=== PATIENT | female | born 1995 | race Caucasian/White ===

== ENCOUNTER 2023-03-08 00:26 | Emergency (ER) | payer BC, SELFPAY ==
--- NOTE | ~2023-03-08 | CT_ITS ---
CT of the Abdomen and Pelvis: Indication: Abdominal pain Technique: 2.5 mm axial scans were obtained through the abdomen and pelvis following intravenous adm inistration of 100 cc of Omnipaque 350. Dose reduction technique was used on this scan by utilizing a utomated exposure control and iterative reconstruction technique. The dose-length product (DLP) was 1 546.28 mGy-cm. Findings: Scans through the lung bases are unremarkable. The liver, spleen, pancreas, adrenals and kidneys are within normal limits. Gallstones are present. N o evidence of aortic aneurysm. No lymphadenopathy. No bowel obstruction or bowel wall thickening. There is no evidence to suggest acute appendicitis. Images through the pelvis were performed. Urinary bladder unremarkable. No significant adnexal mass s een. No ascites. Impression: Cholelithiasis. Reviewed, dictated and finalized at location . Impression: Cholelithiasis.
[2023-03-08 00:29] VITALS: BP 132/77; PULSE 87; RESP 16; TEMP 36.5; O2SAT 100
[2023-03-08 00:46] LABS: Basophils Percent Auto 0.4 % (0.2-1.2); Eosinophils Absolute Auto 0.4 K/mm3 (0-0.3); Eosinophils Percent Auto 3.6 % (0-4.4); Hematocrit 41.2 % (37.0-47.0); Hemoglobin 13.4 g/dL (12.0-15.0); Immature Granulocyte Absolute 0.04 K/mm3 (0.00-0.031); Immature Granulocyte Percent A 0.4 % (0-0.5); Lymphocytes Absolute Auto 3.28 K/mm3 (0.9-3.2); Lymphocytes Percent Auto 31.7 % (18.3-44.2); Mean Corpuscular HGB Conc 32.5 g/dl (32-36); Mean Corpuscular Hemoglobin 28.8 pg (26-34); Mean Corpuscular Volume 88.4 fl (80-100); Mean Platelet Volume 9.6 fl (7.4-10.4); Monocytes Absolute Auto 0.7 K/mm3 (0.1-0.6); Monocytes Percent Auto 6.3 % (2.6-8.5); Neutrophils Percent Auto 57.6 % (45.5-73.1); Platelet Count Result 303 k/mm3 (150-375); Red Blood Count 4.66 M/mm3 (4.2-5.4); Red Cell Distribution Width 12.8 % (11.5-14.5); White Blood Count 10.4 K/mm3 (4.5-10.0)
[2023-03-08 00:52] LABS: Appearance Urine Clear (Clear); Bilirubin Urine Negative (Negative); Blood Urine Negative (Negative); Color Urine Yellow (Yellow); Glucose Urine UA Negative (Negative); Ketones Urine Negative (Negative); Leukocyte Esterase Ur Negative LEU/UL (Negative); Nitrate Urine Negative (Negative); Protein Urine Negative (Negative); Specific Grav Ur 1.007 (1.001-1.035); Urobilinogen Urine 0.2 mg/dL (<2.0); pH Urine 7.5 (5.0-9.0)
[2023-03-08 01:00] LABS: Alanine Aminotransferase 21 U/L (6-35); Albumin Level 4.3 g/dL (3.5-5.1); Alkaline Phosphatase 87 U/L (38-126); Anion Gap 2 mmol/L (8-16); Aspartate Amino Transferase 23 U/L (14-36); Bilirubin,Total 0.2 mg/dL (0.2-1.3); Blood Urea Nitrogen 8 mg/dL (7-17); Calcium 9.2 mg/dL (8.4-10.2); Carbon Dioxide 27 mmol/L (22-30); Chloride 105 mmol/L (98-107); Estimated CRCL calculation 143 ml/min; Estimated Glomerular Filt Rate > 60; Glucose 102 mg/dL (65-110); Lipase 73 U/L (23-300); Sodium 134 mmol/L (137-145)
[2023-03-08 01:02] LABS: Add Urine Microscopic? NO
--- NOTE | 2023-03-08 01:25 | ED.GENADULT ---
HPI - General Adult General Chief complaint: Abdominal Pain Stated complaint: abd pain Time Seen by Provider: 03/08/23 01:05 History of Present Illness HPI narrative: Patient is a 27-year-old female who presents the emergency department with chief complaint of right upper quadrant pain. Patient reports that she has history of gallbladder disease and reports that she still has her gallbladder and has not had a surgery on it yet patient reports that she ate some cream cheese this morning and had some jambalaya for lunch and then started having severe pain in the right upper quadrant that radiates to her back. The patient states the worst episode that she has had so far and reports the pain is not improved by anything. Related Data Allergies Allergy/AdvReac Type Severity Reaction Status Date / Time No Known Allergies Allergy Verified 03/08/23 00:53 Review of Systems Review of Systems: A 10 system review of systems was completed on the patient and is negative except for what is stated in the HPI. Nursing and ancillary documentation was reviewed. Exam Narrative: GENERAL: Well-appearing, well-nourished, and in no acute distress. HEAD: Normocephalic, atraumatic. EYES: PERRLA and EOMI. ENT: Nares clear, no rhinorrhea or epistaxis. Mucous membranes moist. NECK: Supple. CHEST: Clear to auscultation. No respiratory distress. HEART: Regular rate and rhythm. No murmur heard. Normal peripheral pulses. ABDOMEN: Soft, tenderness to palpation of the right upper quadrant, nondistended, normal active bowel sounds. EXTREMITIES: Normal range of motion. No edema. SKIN: Warm, dry, no rash. NEURO: No focal deficits. Alert and oriented x3. PSYCH: Normal mood and affect. Course Vital Signs Vital signs: Vital Signs Temperature 36.5 C 03/08/23 00:29 Pulse Rate 87 03/08/23 00:29 Respiratory Rate 16 03/08/23 00:29 Blood Pressure 132/77 03/08/23 00:29 Pulse Oximetry 100 03/08/23 00:29 Oxygen Delivery Room Air 03/08/23 00:29 Temperature 36.5 C 03/08/23 00:29 Pulse Rate 78 03/08/23 06:21 Respiratory Rate 14 03/08/23 06:21 Blood Pressure 110/70 03/08/23 06:21 Pulse Oximetry 100 03/08/23 06:21 Oxygen Delivery Room Air 03/08/23 00:29 Medical Decision Making MDM Narrative Medical decision making narrative: Differential diagnosis include choledocholithiasis, cholelithiasis, acute cholecystitis Laboratory studies were obtained and the patient is a white count of 10.4 electrolytes showed an AST of 23 and ALT of 21 and a bilirubin of 0.2 urinalysis showed no evidence of UTI lipase was 73 CT scan shows no evidence of acute cholecystitis just evidence of cholelithiasis Vital Signs Vital Signs: Vital Signs Temperature 36.5 C 03/08/23 00:29 Pulse Rate 87 03/08/23 00:29 Respiratory Rate 16 03/08/23 00:29 Blood Pressure 132/77 03/08/23 00:29 Pulse Oximetry 100 03/08/23 00:29 Oxygen Delivery Room Air 03/08/23 00:29 Temperature 36.5 C 03/08/23 00:29 Pulse Rate 78 03/08/23 06:21 Respiratory Rate 14 03/08/23 06:21 Blood Pressure 110/70 03/08/23 06:21 Pulse Oximetry 100 03/08/23 06:21 Oxygen Delivery Room Air 03/08/23 00:29 Lab Data 03/08/23 00:39 03/08/23 00:39 Labs: Lab Results 03/08/23 03/08/23 Range/Units 00:39 00:45 WBC 10.4 H (4.5-10.0) K/mm3 RBC 4.66 (4.2-5.4) M/mm3 Hgb 13.4 (12.0-15.0) g/dL Hct 41.2 (37.0-47.0) % MCV 88.4 (80-100) fl MCH 28.8 (26-34) pg MCHC 32.5 (32-36) g/dl RDW 12.8 (11.5-14.5) % Plt Count 303 (150-375) k/mm3 MPV 9.6 (7.4-10.4) fl Immature Gran % (Auto) 0.4 (0-0.5) % Neut % (Auto) 57.6 (45.5-73.1) % Lymph % (Auto) 31.7 (18.3-44.2) % Placer % (Auto) 6.3 (2.6-8.5) % Eos % (Auto) 3.6 (0-4.4) % Baso % (Auto) 0.4 (0.2-1.2) % Lymph # (Auto) 3.28 H (0.9-3.2) K/mm3 Placer # (Auto) 0.7 H (0.1-0.6) K/mm3 Eos #
[2023-03-08] MEDS: ONDANSETRON INJ 4 MG/2 ML VIAL IV PUSH ×2 (01:35→06:46)
[2023-03-08] MEDS: MORPHINE SULFATE (*CRX) 4 MG/ML INJ IV PUSH ×2 (01:35→02:21)
[2023-03-08] MEDS: SODIUM CHLORIDE 0.9% IV 1,000 ML 999 ML IV CONT (01:35)
[2023-03-08 03:35] VITALS: BP 123/78; PULSE 71; RESP 14; O2SAT 99
[2023-03-08 05:28] VITALS: BP 111/76; PULSE 80; RESP 18; O2SAT 96
[2023-03-08 06:21] VITALS: BP 110/70; PULSE 78; RESP 14; O2SAT 100
[2023-03-08] MEDS: HYDROmorphone HCL INJ (*CRX) 1 MG/ML SYR 0.5 MG IV PUSH (06:46)
[2023-03-08 07:05] VITALS: BP 117/77; PULSE 88; RESP 17; O2SAT 100
== END 2023-03-08 07:20 | disposition home or self-care (01) ==
PROVIDERS: Emergency Provider Emergency Medicine
DX: K80.20 Calculus of gallbladder without cholecystitis without obstruction (principal)
CPT/HCPCS: 36415; 74177; 80053; 81003; 81025; 83690; 85025; 96361; 96374; 96375; 96376; 99284; J1170; J2270; J2405; J7030; Q9967

== ENCOUNTER → 2023-06-08 09:50 | Outpatient (CLI) | payer BC, SELFPAY ==
--- NOTE | ~2023-06-08 | XR_ITS ---
Left Knee Technique: AP, lateral, and oblique views were obtained. Clinical History: Pain Findings: No fracture or dislocation is seen. Osseous alignment is anatomic. Joint spaces are preserv ed without degenerative or erosive change. Soft tissues are unremarkable. No joint effusion is seen. Impression: Unremarkable left knee radiographs. Reviewed, dictated and finalized at location . Impression: Unremarkable left knee radiographs.
== END ==
PROVIDERS: PCP Emergency Medicine; Visit Provider Emergency Medicine
DX: M79.89 Other specified soft tissue disorders (principal)
CPT/HCPCS: 73562

== ENCOUNTER 2023-11-14 15:32 | Emergency (ER) | payer BC, SELFPAY ==
[2023-11-14 15:40] VITALS: BP 105/64; PULSE 85; RESP 16; TEMP 36.3; O2SAT 100
--- NOTE | 2023-11-14 16:21 | ED.GENADULT ---
HPI - General Adult General Chief complaint: Dental/Oral Stated complaint: Swollen/Numb mouth Source: patient, RN notes reviewed and old records reviewed Mode of arrival: ambulatory Limitations: no limitations History of Present Illness HPI narrative: 27-year-old female presents to [facility] with complaints upper lip swelling that started approximately 1:00 p.m. today. Patient states took 12.5 mg of Benadryl and swelling has improved. Patient denies any changes in medications, changes in products, patient denies eating or drinking anything prior to incident. Related Data Home Medications Medication Instructions Recorded Confirmed fluoxetine 40 mg capsule 40 mg PO DAILY 11/14/23 11/14/23 metformin 500 mg tablet 1,500 mg PO HS 11/14/23 11/14/23 Allergies Allergy/AdvReac Type Severity Reaction Status Date / Time ketorolac [From Toradol] Allergy Anaphylaxis Verified 11/14/23 17:05 Review of Systems Constitutional: Constitutional: Reports no additional constitutional complaints, Denies body ache(s), Denies chills, Denies fatigue, Denies fever(s) and Denies headache(s) Eyes: Eyes: Reports no additional eye complaints and Denies blurry vision ENT: Reports system reviewed and no additional complaints, except as documented, Denies vertigo, Denies dizziness, Denies ear discharge, Denies otalgia, Denies facial pain, Denies headache(s), Reports lip swelling ( Upper lip), Denies nasal congestion, Denies nasal discharge, Denies sinus pain, Denies sinus pressure and Denies sore throat Cardiovascular: Cardiovascular: Reports no additional cardiovascular complaints, Denies chest pain, Denies chest pain at rest, Denies rapid heart rate and Denies dyspnea Respiratory: Respiratory: Reports no additional respiratory complaints, Denies chest congestion, Denies cough, Denies pain on inspiration, Denies pain with cough and Denies dyspnea Gastrointestinal: Gastrointestinal: Denies abdominal pain, Denies diarrhea, Denies nausea and Denies vomiting Integumentary/Breasts: Skin/Breast: Denies rash Neurologic: Reports system reviewed and no additional complaints, except as documented, Denies vertigo, Denies dizziness and Denies headache(s) Endocrine: Endocrine: Denies fatigue PMFSH Comments At the time of my signature, I reviewed and agree with the nursing past medical, surgical, social, and family history. There is no relevant family history pertinent to the patient complaint. Exam Const: General: cooperative, healthy appearing, no acute distress and well nourished Nutritional Appearance: well nourished Orientation/consciousness: patient oriented x3 Limitations: no limitations HENMT: Head: normal to inspection and normocephalic Ears: external ears normal Face/Nose/Sinus: normal facial exam Face and sinus: normal facial exam Mouth: Yes Normal oral and palatal mucosa present, No lip normal, Yes oropharynx normal, Yes moist mucous membranes, Yes lip abnormal ( swollen upper lip. No acute distress) and No tongue abnormal Throat: tonsils normal, uvula midline and no uvular edema Eyes: General: appearance normal, both eyes and all related structures Sclera: sclerae normal Pupils: Equal, round and reactive pupils present Resp: Effort & Inspection: normal respiratory effort, able to speak in complete sentences, no audible wheezes, no cough, no respiratory distress and no retractions Auscultation: clear to auscultation bilaterally, no crackles, no rales, no rhonchi and no wheezes Cardio: Rate: regular rate Rhythm: regular rhythm Skin: General skin exam: normal color and no rashes or lesions noted Neuro: General: patient oriented x3 Cranial nerves: Yes Equal, round and reactive pupils present Psych: Appearance: grossly normal Mental Status: mental status grossly normal Speech and movement: Normal speech and movement present Affect: normal affect Course Course Emergency Course: Patient is aware of diagnosis, understands and agrees
[2023-11-14] MEDS: predniSONE 20 MG TABLET 40 MG PO (16:34)
[2023-11-14] MEDS: FAMOTIDINE 20 MG TABLET PO (16:34)
== END 2023-11-14 16:54 | disposition home or self-care (01) ==
PROVIDERS: Emergency Provider Registered Nurse; PCP Emergency Medicine
DX: T78.40XA Allergy, unspecified, initial encounter (principal); E28.2 Polycystic ovarian syndrome
CPT/HCPCS: 99213; A9270; G0463; J7512

== ENCOUNTER 2023-12-16 16:00 | Outpatient (CLI) | payer BC, SELFPAY ==
--- NOTE | ~2023-12-16 | XR_ITS ---
EXAMINATION: XR shoulder RT min 2V DATE: 12/16/2023 16:45 INDICATION: Right shoulder pain. TECHNIQUE: 5 views of right shoulder were obtained. COMPARISON: None. FINDINGS: Bone alignment is normal. No fracture. Joint spaces are normal. IMPRESSION: 1. Normal right shoulder. Reviewed, dictated and finalized at location E. IMPRESSION: 1. Normal right shoulder.
== END 2023-12-16 16:01 ==
PROVIDERS: PCP Emergency Medicine; Visit Provider Emergency Medicine
DX: M25.511 Pain in right shoulder (principal)
CPT/HCPCS: 73030

== ENCOUNTER 2024-06-15 08:26 | Outpatient (CLI) | payer BC, SELFPAY ==
--- NOTE | ~2024-06-15 | US_ITS ---
US breast BI complete INDICATION: Nipple discharge. TECHNIQUE: Dedicated bilateral complete breast ultrasound COMPARISON: No prior studies for comparison. FINDINGS: The breasts are composed of normal heterogeneous echotexture without focal solid or cystic mass. IMPRESSION: 1: Normal bilateral breast ultrasound. BI-RADS CATEGORY 1 - NEGATIVE Reviewed, dictated and finalized at location B.
== END 2024-06-15 08:27 | disposition home or self-care (01) ==
LOC: MICIMG 08:28
PROVIDERS: PCP Emergency Medicine; Visit Provider Obstetrics & Gynecology
DX: N64.52 Nipple discharge (principal)
CPT/HCPCS: 76641

== ENCOUNTER 2024-08-13 14:36 | Emergency (ER) | payer BC, SELFPAY ==
--- NOTE | ~2024-08-13 | CT_ITS ---
EXAMINATION: CT brain wo con DATE: 08/13/2024 16:27 INDICATION: Migraine TECHNIQUE: Computed tomography (CT) of the head was performed without intravenous contrast. Sagittal and coronal reconstructions were performed. The mA was adjusted according to patient size. Iterative reconstruction technique was employed. The dose-length product was 681.00 mGy-cm. COMPARISON: None FINDINGS: There is no acute or chronic intracranial hemorrhage. There is no infarct. The ventricles are normal and symmetric. The orbits, paranasal sinuses and mastoid air cells are normal. IMPRESSION: 1. Normal head CT. Reviewed, dictated and finalized at location A. [employer] OPERATOR IMPRESSION: 1. Normal head CT.
[2024-08-13 14:52] VITALS: BP 125/74; PULSE 87; RESP 16; TEMP 36.6; O2SAT 100
--- NOTE | 2024-08-13 15:59 | ED.HA ---
HPI - Headache General Chief Complaint: Headache Stated Complaint: migraine Time Seen by Provider: 08/13/24 15:58 28-year-old female presents with headache and nausea x 14 hours. Patient has a history of cluster migraines. Patient has been taking Excedrin with minimal relief. Patient contact PCP instructed come to the ER to get a head CT. Patient denies any other symptom General appearance: Well-developed, well-nourished Skin: Normal color Head: Normocephalic, nontraumatic Eyes: Clear conjunctiva, photosensitivity ENT: Oropharynx normal, ears normal, nose normal Neck: Supple, nontender Chest and respiratory: Airway patent, no respiratory distress, no accessory muscle use Heart: Regular rate/rhythm Abdomen: Soft, nontender, no organomegaly, quiet bowel sounds Vascular: Normal peripheral pulses, normal capillary refill. Musculoskeletal: Normal range of motion, nontender back Neurologic: Alert and oriented ?3, [employer]IAN is normal as tested, no gross motor deficit History of Present Illness HPI Narrative: See MSE note Onset (ago): hour(s) (14) Related Data Home Medications ?Medication ?Instructions ?Recorded ?Confirmed ?Last Taken ?Type fluoxetine 40 mg capsule 40 mg PO DAILY 11/14/23 11/14/23 Unknown History metformin 500 mg tablet 1,500 mg PO HS 11/14/23 11/14/23 Unknown History Allergies Allergy/AdvReac Type Severity Reaction Status Date / Time morphine AdvReac Intermediate Chest Pain Verified 08/13/24 14:38 ketorolac (From Toradol) AdvReac Flushing Verified 08/13/24 14:38 Review of Systems Review of Systems: All systems reviewed & are unremarkable except as noted in HPI and below Exam Narrative: GENERAL: Well-appearing, well-nourished, and in no acute distress. HEAD: Normocephalic, atraumatic. EYES: PERRLA and EOMI. Photophobia ENT: Nares clear, no rhinorrhea or epistaxis. Mucous membranes moist. NECK: Supple. CHEST: Clear to auscultation. No respiratory distress. HEART: Regular rate and rhythm. No murmur heard. Normal peripheral pulses. ABDOMEN: Soft, nontender, nondistended, normal active bowel sounds. EXTREMITIES: Normal range of motion. No edema. SKIN: Warm, dry, no rash. NEURO: No focal deficits. Alert and oriented x3. PSYCH: Normal mood and affect. Course Vital Signs Vital signs: Vital Signs Temperature 36.6 C 08/13/24 14:52 Pulse Rate 87 08/13/24 14:52 Respiratory Rate 16 08/13/24 14:52 Blood Pressure 125/74 08/13/24 14:52 Pulse Oximetry 100 08/13/24 14:52 Oxygen Delivery Room Air 08/13/24 14:52 Temperature 36.6 C 08/13/24 14:52 Pulse Rate 87 08/13/24 14:52 Respiratory Rate 16 08/13/24 14:52 Blood Pressure 125/74 08/13/24 14:52 Pulse Oximetry 100 08/13/24 14:52 Oxygen Delivery Room Air 08/13/24 14:52 MDM - Headache MDM Narrative Medical decision making narrative: Patient's head CT is negative. patient had relief with imitrex injection. will discharge home with rx of imitrex. patient has neurology referral from pcp. Discharge Plan Discharge Clinical Impression: Migraine Patient Disposition: Home, Self-Care Condition: Improved Instructions: Antibiotic Form, Migraine Headache (ED) Additional Instructions: Take medication as prescribed Return for worsening symptoms follow-up with primary care doctor Patient Language: Nigerian Prescriptions: New sumatriptan succinate [Imitrex] 50 mg tablet See Rx Instructions .ROUTE .COMPLEX Qty: 14 0RF Rx Instructions: take 1 tab at onset of headache; if no relief may repeat 1 tab after at least 2 hrs; max = 4 tabs/24 hr No Action methylprednisolone [Medrol (Elijah)] 4 mg tablets,dose pack See Rx Instructions .ROUTE .COMPLEX Qty: 21 0RF Rx Instructions: for 6 days famotidine 20 mg tablet 20 mg PO BID Qty: 14 0RF metformin 500 mg Tablet 1,500 mg PO HS fluoxetine 40 mg Capsule 40 mg PO DAILY Follow-up/Referrals: Khari Chance MD [Primary Care Provider] - 1 Week Time of Disposition: 16:43
[2024-08-13] MEDS: SUMAtriptan SUCCINATE 6 MG/0.5 ML VIAL SUB-Q (16:14)
[2024-08-13 16:51] VITALS: BP 113/69; PULSE 83; RESP 15; TEMP 36.4; O2SAT 100
== END 2024-08-13 16:54 | disposition home or self-care (01) ==
PROVIDERS: Emergency Provider Nurse Practitioner Family; PCP Emergency Medicine
DX: G43.909 Migraine, unspecified, not intractable, without status migrainosus (principal)
CPT/HCPCS: 70450; 96372; 99284; J3030

== ENCOUNTER 2024-09-01 09:56 | Outpatient (CLI) | payer BC, SELFPAY ==
--- NOTE | ~2024-09-01 | MR_ITS ---
MRI of the left knee Clinical history: Pain Technique: Coronal proton density and proton density-weighted images, sagittal proton-density and T2 fat-sat images, and axial proton-density fat-saturated images were acquired. Findings: Anterior and posterior cruciate ligaments are intact. Medial collateral ligament and the la teral collateral ligament complex are intact. Popliteus tendon is intact. Medial and lateral menisci are intact, without evidence of tear. There is mild chondromalacia patella, especially the lateral facet. Femoral trochlear cartilage is in tact. There is minimal chondral thinning in the lateral compartment. Bone marrow signals are unremark able. Extensor mechanism is intact. No significant joint effusion or Rey's cyst. Impression: Minimal chondromalacia in the knee, as above. No ligamentous injury or meniscal tear. Reviewed, dictated and finalized at [facility]. ER [employer] Impression: Minimal chondromalacia in the knee, as above. No ligamentous injury or meniscal tear.
== END 2024-09-01 09:57 | disposition home or self-care (01) ==
PROVIDERS: PCP Emergency Medicine; Visit Provider Physician Assistant
DX: M25.562 Pain in left knee (principal); Q79.60 Ehlers-Danlos syndrome, unspecified
CPT/HCPCS: 73721

== ENCOUNTER 2024-10-20 07:44 | Outpatient (CLI) | payer BC, SELFPAY ==
--- NOTE | ~2024-10-20 | US_ITS ---
EXAMINATION: US right upper quadrant DATE: 10/20/2024 08:30 INDICATION: Abnormal liver enzymes TECHNIQUE: Multiple grayscale and Doppler ultrasound images of the abdomen were obtained. COMPARISON: None FINDINGS: The pancreatic head and body are normal in appearance. The pancreatic tail is not visualized. Liver has normal contour, with a smooth surface. There is increased parenchymal echogenicity and coarsened echotexture consistent with diffuse hepatic steatosis. No liver lesion identified. No intrahepatic b iliary duct dilation suspected. Portal venous flow was seen in the hepatopetal, normal direction and has normal Doppler waveform. Visualized proximal inferior vena cava is normal. Gallbladder is not vis ualized and reportedly surgically absent. Common bile duct measures 5 mm diameter which is normal. Vi sualized portions of the right kidney demonstrates normal contour and echogenicity with no hydronephr osis. IMPRESSION: 1. Diffuse hepatic steatosis. Reviewed, dictated and finalized at location A. BLASTING SUPERVISOR
--- OUTSIDE RECORDS SUMMARY | 2024-10-20 07:51 | XMS_ITS | Referral Summary ---
Author Organization [facility] Address [address] [place] [address] Care Team Providers Care Health Benefits Specialist Name Role Phone Khari Chance MD Primary Care Provider [phone] Source Comments [facility],non-owned Affiliates and Associated Physician Practices is amultiple site organization consisting of ambulatory clinics and hospital sitesin [place], [place], [place] and [place]. This disclosure is being madepursuant to the Care Everywhere program and may not contain all information available regarding this patient. Last updated 18.[facility] [place] Allergies Active Allergy Reactions Criticality Noted Date Comments Morphine Shortness of Breath High 03/10/2023 Caused chest heaviness and felt had a hard time breathing Ketorolac Other 03/10/2023 Severe flushing Medications * Be aware that medications may not be up to date on this document. Alwaysverify current medications with the patient. Medication Sig Dispensed Refills Start Date End Date Status FLUoxetine (PROzac) 40 MG capsule Take 1 (one) capsule by mouth once daily 12/10/2021 Active therapeutic multivitamin-minerals (Theragran-M) tablet Take 1 (one) tablet by mouth daily with food Active cyanocobalamin (Vitamin B-12) 1000 MCG tablet Take 5 (five) tablets by mouth once daily Active biotin 2.5 MG tablets Take 4 (four) tablets by mouth once daily Active topiramate (Topamax) 50 MG tablet Take 1 (one) tablet by mouth as needed (migranes) Active clonazePAM (KlonoPIN) 0.5 MG tabletIndications:vasquez ic attack Take 1 (one) tablet by mouth as needed for Anxiety Reasons: panic attack Active LORazepam (Ativan) 0.5 MG tablet Take 1 (one) tablet by mouth every 8 hours as needed for Anxiety Active MULTIPLE VITAMIN PO Take by mouth once daily Active metFORMIN ER 24hr (Glucophage XR) 500MG tablet 3 (three) tablets Active PSYLLIUM PO Take 520 mg by mouth 3 tablets at once = 520 mg Active omeprazole (PriLOSEC) 20 MG capsule Take 1 (one) capsule by mouth as needed for Heartburn Active Etonogestrel (NEXPLANON SC) Active colestipol (Colestid) 1 GM tablet Active clindamycin (Cleocin) 1 % lotionIndications:Hid radenitis suppurativa Apply to affected areas on armpits, lower abdomen, and groin folds daily. 30 day supply. 60 mL 3 05/04/2024 Active pimecrolimus (Elidel) 1 % creamIndications:Rash and other nonspecific skin eruption,Lichen simplex chronicus Apply to affected areas on the face and ankle 2 times daily. 30 days supply. 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 Resolved Problems Problem Noted Date Diagnosed Date Resolved Date S/P laparoscopic cholecystectomy 03/10/2023 07/18/2023 Calculus of gallbladder and bile duct without cholecystitis or obstruction 03/08/2023 07/18/2023 Social History Tobacco Use Types Packs/Day Years Used Date Smoking Tobacco: Never Smokeless Tobacco: Never Tobacco Cessation:Counseling Given: Not Answered Alcohol Use Standard Drinks/Week Comments Never 0 (1 standard drink = 0.6 oz pur e alcohol) Sex and Gender Information Value Date Recorded Sex Assigned at Female 03/22/2023 12:27 AM CDT Gender Identity Female 03/22/2023 12:27 AM CDT Sexual Orientation Straight 03/22/2023 12 :27 AM CDT Last Filed Vital Signs Vital Sign Reading Time Taken Comments Blood Pressure 100/70 10/20/2023 4:18 PM CLINICAL FACULTY Pulse 94 10/20/2023 4:18 PM CLINICAL FACULTY Temperature 36.1 C (97 F) 10/20/2023 4:18 PM CLINICAL FACULTY Respiratory Rate 16 10/20/2023 4:18 PM CLINICAL FACULTY Oxygen Saturation 99% 10/20/2023 4:18 PM CLINICAL FACULTY Inhaled Oxygen Concentration - - Weight 120.7 kg (266 lb) 10/20/2023 4:18 PM CLINICAL FACULTY Height 162.6 cm (5' 4 ) 10/20/2023 4:18 PM CLINICAL FACULTY Body Mass Index 45.66 10/20/2023 4:18 PM CLINICAL FACULTY Plan of Treatment Upcoming Encounters Date Type Department Care Team (Late st Contact Info) Description 12/28/2024 1:40 PM CDT Office Visit [facility] - Dermatology [address] [place] [address], [facility] [place] [phone] Gloria Singleton MD [address] [place] [address] [address] [place] [phone] Advance Directives * Full Code (Latest Code Status on File) Date Activated Date Inactivated Comments 03/08/2023 7:05 PM 03/11/2023 4:36 PM Care Teams Health Benefits Specialist Relationship Specialty Start Date End Date Khari Chance MD [address] [place] [address] PCP - General Family Medicine 03/09/23
--- OUTSIDE RECORDS SUMMARY | 2024-10-20 07:51 | XMS_ITS | Referral Summary ---
Author Organization [facility] [address] [place] [address] Care Team Providers Care Accounts Administrator Name Role Phone Khari Chance MD Primary Care Provider [phone] Encounters Date Type Department Care Team Description 09/28/2024 9:15 AM [employer]PER[employer]OR Office Visit [facility] Medical [facility] Orthopedics and Sports Medicine [address] [place] [address] [address] [place] [address] Mateo Martinez MD Left knee pain, unspecified chronicity (Primary Dx); Chondromalacia, patella, left; EDS (Iveth-Danlos syndrome) 09/05/2024 Telephone [facility] Hand Surgery [address] [place] [address] [address] [place] [phone] Karuna Amaro PA 09/04/2024 Orders Only [facility] Orthopedics and Sports Medicine [address] [place] [address] [address] [place] [address] ProviderLori MD 09/01/2024 - 09/01/2024 11:59 PM [employer] SUPERVISOR Hospital Encounter [facility] [employer] [address] [place] [address] Discharge Disposition: Discharge to home or self care 08/17/2024 7:53 AM [employer]ACILITY SUPERVISOR - 08/17/2024 11:59 PM [employer]ILITY SUPERVISOR Hospital Encounter [facility] [address] [place] [id number] Left knee pain, unspecified chronicity Discharge Disposition: Discharge to home or self care 08/17/2024 8:00 AM [employer] SUPERVISOR Office Visit [facility] Orthopedics and Sports Medicine [address] [place] [address] [place] [phone] Karuna Amaro PA Left knee pain, unspecified chronicity (Primary Dx); EDS (Iveth-Danlos syndrome) from Last 3 Months Allergies Active Allergy Reactions Criticality Noted Date Comments Ketorolac Chest tightness,Flus sheila (skin),Other (See comments),Redness High 03/09/2023 Severe flushing Morphine Anaphylaxis,Anxiety, Shor tness of breath High 03/09/2023 Caused chest heaviness and felt had a hard time breathing Medications clonazePAM (KlonoPIN) 0.5 mg tablet Take 1 tablet (0.5 mg total) by mouth as needed 8 Active topiramate (TOPAMAX) 50 mg tablet Take 1 tablet (50 mg total) by mouth as needed 2 Active LORazepam (ATIVAN) 0.5 mg tablet Take one tab daily prn for severe anxiety. 8 Active FLUoxetine (PROzac) 40 mg capsule Take 1 capsule (40 mg total) by mouth daily 0 Active cyanocobalamin (Vitamin B-12) 1,000 mcg tablet Take 5 tablets (5,000 mcg total) by mouth daily Active omeprazole (PriLOSEC) 20 mg capsule Take 1 capsule (20 mg total) by mouth as needed Active metFORMIN XR (GLUCOPHAGE XR) 500 mg 24 hr tablet 3 tablets (1,500 mg total) Active biotin 1 mg capsule Take 10 mg by mouth daily Active multivitamin tablet Take by mouth daily Active etonogestreL (NEXPLANON) 68 mg implant Inject under the skin Active colestipoL (COLESTID) 1 gram tablet 1 tablet (1 g total) 2 (two) times a day Active pimecrolimus (ELIDEL) 1 % cream Apply topically 2 (two) times a day 4 Active SUMAtriptan (IMITREX) 50 mg tablet TAKE 1 TABLET BY MOUTH AT ONSET OF HEADACHE. IF NO RELIEF MAY REPEAT 1 TABLET AFTER 2 HOURS. MAX OF 4 TABLETS IN 24 HOURS 4 Active Active Problems Problem Noted Date Diagnosed Date FRANCIA (obstructive sleep apnea) 01/11/2024 Assessment & Plan (07/18/2024 3:28 PM [employer]IMAL [employer]ACILITY SUPERVISOR): Patient continue to wear her CPAP at auto titrating range of 5-20 cm water pressure while sleeping. Her DME is [facility] home care. Assessment & Plan (01/11/2024 2:23 PM CDT): Due to continued symptoms, the patient will continue CPAP at 5-20 cm water pressure. Denied need for supplies. 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 I have recommended proceeding with a nocturnal polysomnogram with a split night protocol if necessary and no MSLT. The patient will follow up here in 3 months. Social History Tobacco Use Types Packs/Day Years Used Date Smoking Tobacco: Never Passive Smoke Exposure: Never Smokeless Tobacco: Never Tobacco Cessation:Counseling Given: No AUDIT-C Answer Date Recorded Q1: How often do you have a drink containing alc ohol? Never 10/12/2023 Average Number of Drinks Not on file 02/14/2 024 Frequency of Binge Drinking Not on file 09/29 Comments Unknown Sex and Gender Information Value Date Recorded Sex Assigned at Not on file Legal Sex Female 10:34 AM [employer] SUPERVISOR Gender Identity Female 10/12/2023 1:59 PM [employer]ILITY SUPERVISOR Sexual Orientation Not on file Last Filed Vital Signs Vital Sign Reading Time Taken Comments Blood Pressure 124/76 07/18/2024 3:17 PM [employer]ILITY SUPERVISOR Pulse 83 07/18/2024 3:17 PM [employer]AL [employer]ACILITY SUPERVISOR Temperature 37 C (98.6 F) 07/18/2024 3:17 PM [employer]AL [employer]ACILITY SUPERVISOR Respiratory Rate 18 07/18/2024 3:17 PM [employer]AL [employer]ACILITY SUPERVISOR Oxygen Saturation 99% 07/18/2024 3:17 PM [employer]AL [employer]ACILITY SUPERVISOR Inhaled Oxygen Concentration - - Weight 119.7 kg (264 lb) 09/28/2024 9:15 AM [employer]EARCH [employer]IMAL [employer]ACILITY SUPERVISOR Height 164.5 cm (5' 4.75 ) 09/28/2024 9:15 AM CS T Body Mass Index 44.27 09/28/2024 9:15 AM [employer]ILITY SUPERVISOR Plan of Treatment Not on file Procedures Procedure Name Priority Date/Time Associated Diagnosis Comments MRI KNEE LEFT WO CONTRAST Schedule Routine, Read Routine (OP Routine) 09/04/2024 3:11 PM [employer]EARCH [employer]AL [employer]ACILITY SUPERVISOR MSK MR OUTSIDE REFERENCE Routine 09/01/2024 12:00 AM [employer]AL [employer]ACILITY SUPERVISOR XR KNEE LEFT 3 VIEWS Schedule Routine, Read Routine (OP Routine) 08/17/2024 7:58 AM [employer]ILITY SUPERVISOR Left knee pain, unspecified chronicity from Last 3 Months Results * MRI Knee Left WO Contrast (09/04/2024 3:11 PM [employer]EARCH [employer]IMAL [employer]ACILITY SUPERVISOR) Anatomical Region Laterality Modality Lower Extremities Left Magnetic Reson ance Historical Provider IMG MRI PROCEDURES Final Result * MSK MR Outside Reference (09/01/2024 12:00 AM RESEARCH ANIMAL FACILITY SUPERVISOR) Narrative RAD_ALESHA_MHB_MHE - 09/28/2024 9:31 AM [employer]EARCH [employer]AL [employer]ACILITY SUPERVISOR This order has been auto-finalized and does not contain a result. us Provider Transcribed Order IMG MRI PROCEDURES Fi nal Result RAD_CLARIO_MHB_MHE * XR Knee Left 3 Views (08/17/2024 7:58 AM [employer]EARCH ANIMAL [employer]ACILITY SUPERVISOR) Anatomical Region Laterality Modality Lower Extremities, Knee Left Computed Radiography 08/18/2024 9:18 PM [employer]EARCH [employer]IMAL FACILITY SUPERVISOR Narrative 08/18/2024 9:19 PM [employer]EARCH [employer]AL [employer]ACILITY SUPERVISOR EXAM DESCRIPTION: XR KNEE LEFT 3 VIEWS REASON FOR STUDY: pain Increased general knee pain for 2 years, no injury FINDINGS: Three views submitted without comparison. No acute fractures are identified. Alignment is normal. There is mild patellofemoral compartment left knee osteoarthritis. There is no effusion. IMPRESSION: Mild patellofemoral compartment left knee osteoarthritis. THIS IS AN ELECTRONICALLY VERIFIED FINAL REPORT 08/18/2024 9:19 PM - Electronically signed by Rigo Craig M.D. T: Report ID: [id number] Reading Location: [id number] Procedure Note Rigo Craig MD - 08/18/2024 EXAM DESCRIPTION: XR KNEE LEFT 3 VIEWS REASON FOR STUDY: pain Increased general knee pain for 2 years, no injury FINDINGS: Three views submitted without comparison. No acute fractures are identified. Alignment is normal. There is mild patellofemoral compartment left knee osteoarthritis. There is noeffusion. IMPRESSION: Mild patellofemoral compartment left knee osteoarthritis. THIS IS AN ELECTRONICALLY VERIFIED FINAL REPORT 08/18/2024 9:19 PM - Electronically signed by Rigo Craig M.D. T: Report ID: [id number] Reading Location: [id number] us Karuna BRANCH IMG XR PROCEDURES Final R esult from Last 3 Months Insurance [facility] Care Teams Accounts Administrator Relationship Specialty Start Date End Date Khari Chance MD PCP - General Emergency Medicine 09/06/23
--- OUTSIDE RECORDS SUMMARY | 2024-10-20 07:51 | XMS_ITS | Patient Health Summary ---
Author Organization [facility] Address [address] [place] [address] Care Team Providers Care Electrical Maintenance Engineer Name Role Phone Khari Chance MD Primary Care Provider [phone] Note from [facility],non-owned Affiliates and Associated Physician Practices is amultiple site organization consisting of ambulatory clinics and hospital sitesin [place], [place], [place] and [place]. This disclosure is being madepursuant to the Care Everywhere program and may not contain all information available regarding this patient. Last updated 18.[facility] Allergies * Morphine(Shortness of Breath) -High Criticality * Ketorolac(Other) Medications * Be aware that medications may not be up to date on this document. Alwaysverify current medications with the patient. * FLUoxetine (PROzac) 40 MG capsule(Started 12/10/2021) Take 1 (one) capsule by mouth once daily * therapeutic multivitamin-minerals (Theragran-M) tablet Take 1 (one) tablet by mouth daily with food * cyanocobalamin (Vitamin B-12) 1000 MCG tablet Take 5 (five) tablets by mouth once daily * biotin 2.5 MG tablets Take 4 (four) tablets by mouth once daily * topiramate (Topamax) 50 MG tablet Take 1 (one) tablet by mouth as needed (migranes) * clonazePAM (KlonoPIN) 0.5 MG tablet Take 1 (one) tablet by mouth as needed for Anxiety Reasons: panic attack * LORazepam (Ativan) 0.5 MG tablet Take 1 (one) tablet by mouth every 8 hours as needed for Anxiety * MULTIPLE VITAMIN PO Take by mouth once daily * metFORMIN ER 24hr (Glucophage XR) 500MG tablet 3 (three) tablets * PSYLLIUM PO Take 520 mg by mouth 3 tablets at once = 520 mg * omeprazole (PriLOSEC) 20 MG capsule Take 1 (one) capsule by mouth as needed for Heartburn * Etonogestrel (NEXPLANON SC) * colestipol (Colestid) 1 GM tablet * clindamycin (Cleocin) 1 % lotion(Started 05/04/2024) Apply to affected areas on armpits, lower abdomen, and groin folds daily. 30 day supply. 3 refills by 05/04/2025 * pimecrolimus (Elidel) 1 % cream(Started 05/04/2024) Apply to affected areas on the face and ankle 2 times daily. 30 days supply. 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 Resolved Problems Problem Noted Date Diagnosed Date [...] Comments Blood Pressure 100/70 10/20/2023 4:18 PM ENVIRONMENTAL HEALTH AND SAFETY LEADER Pulse 94 10/20/2023 4:18 PM ENVIRONMENTAL HEALTH AND SAFETY LEADER Temperature 36.1 C (97 F) 10/20/2023 4:18 PM ENVIRONMENTAL HEALTH AND SAFETY LEADER Respiratory Rate 16 10/20/2023 4:18 PM ENVIRONMENTAL HEALTH AND SAFETY LEADER Oxygen Saturation 99% 10/20/2023 4:18 PM ENVIRONMENTAL HEALTH AND SAFETY LEADER Inhaled Oxygen Concentration - - Weight 120.7 kg (266 lb) 10/20/2023 4:18 PM ENVIRONMENTAL HEALTH AND SAFETY LEADER Height 162.6 cm (5' 4 ) 10/20/2023 4:18 PM ENVIRONMENTAL HEALTH AND SAFETY LEADER Body Mass Index 45.66 10/20/2023 4:18 PM ENVIRONMENTAL HEALTH AND SAFETY LEADER Procedures * CARDIOLIPIN ANTIBODY IGA/IGG/IGM PANEL(Performed 07/18/2023) Performed for Positive RACHEL (antinuclear antibody) 1:320 speckled pattern * COMPLEMENT C3 C4 PANEL(Performed 07/18/2023) Performed for Positive RACHEL (antinuclear antibody) 1:320 speckled pattern * THYROID PEROXIDASE ANTIBODY(Performed 07/18/2023) Performed for Positive RACHEL (antinuclear antibody) 1:320 speckled pattern * THYROGLOBULIN ANTIBODY(Performed 07/18/2023) Performed for Positive RACHEL (antinuclear antibody) 1:320 speckled pattern * RACHEL PANEL COMPREHENSIVE(Performed 07/18/2023) Performed for Positive RACHEL (antinuclear antibody) 1:320 speckled pattern * PHOSPHORUS BLOOD(Performed 03/11/2023) Performed for Calculus of gallbladder and bile duct without cholecystitis or obstruction * MAGNESIUM BLOOD(Performed 03/11/2023) Performed for Calculus of gallbladder and bile duct without cholecystitis or obstruction * BASIC METABOLIC PANEL (CALCIUM TOTAL)(Performed 03/11/2023) Performed for Calculus of gallbladder and bile duct without cholecystitis or obstruction * CBC W/O DIFFERENTIAL(Performed 03/11/2023) Performed for Calculus of gallbladder and bile duct without cholecystitis or obstruction * ENDOTRACHEAL TUBE NOTE(Performed 03/10/2023) * PATHOLOGY TISSUE(Performed 03/10/2023) Performed for Cholecystitis * MS LAP,CHOLECYSTECTOMY(Performed 03/10/2023) Performed for Cholecystitis * PHOSPHORUS BLOOD(Performed 03/10/2023) Performed for Calculus of gallbladder and bile duct without cholecystitis or obstruction * MAGNESIUM BLOOD(Performed 03/10/2023) Performed for Calculus of gallbladder and bile duct without cholecystitis or obstruction * BASIC METABOLIC PANEL (CALCIUM TOTAL)(Performed 03/10/2023) Performed for Calculus of gallbladder and bile duct without cholecystitis or obstruction * CBC W/O DIFFERENTIAL(Performed 03/10/2023) Performed for Calculus of gallbladder and bile duct without cholecystitis or obstruction * BLOOD TYPE VERIFICATION(Performed 03/09/2023) * TYPE + SCREEN PANEL(Performed 03/09/2023) * CBC W AUTO DIFFERENTIAL(Performed 03/09/2023) Performed for RUQ pain, Calculus of gallbladder and bile duct without cholecystitis or obstruction * PT-INR SLH(Performed 03/09/2023) Performed for RUQ pain, Calculus of gallbladder and bile duct without cholecystitis or obstruction * PHOSPHORUS BLOOD(Performed 03/09/2023) Performed for RUQ pain, Calculus of gallbladder and bile duct without cholecystitis or obstruction * MAGNESIUM BLOOD(Performed 03/09/2023) Performed for RUQ pain, Calculus of gallbladder and bile duct without cholecystitis or obstruction * COMPREHENSIVE METABOLIC PANEL(Performed 03/09/2023) Performed for RUQ pain, Calculus of gallbladder and bile duct without cholecystitis or obstruction * US ABDOMEN LIMITED(Performed 03/08/2023) Performed for RUQ pain * PT-INR [facility](Performed 03/08/2023) * LIPASE BLOOD(Performed 03/08/2023) * HCG BETA BLOOD QUANTITATIVE(Performed 03/08/2023) * COMPREHENSIVE METABOLIC PANEL(Performed 03/08/2023) * CBC W AUTO DIFFERENTIAL(Performed 03/08/2023) Results * CARDIOLIPIN ANTIBODY IGA/IGG/IGM PANEL (07/18/2023 4:14 PM ENVIRONMENTAL HEALTH AND SAFETY LEADER) Cardiolipin Antibody IgG <9 0 - 14 GPL U/mL [facility] ACCOUNT BILL Comment: Negative: <15 Indeterminate: 15 - 20 Low-Med Positive: >20 - 80 High Positive: >80 Cardiolipin Antibody IgM <9 0 - 12 MPL U/mL [facility] ACCOUNT BILL Comment: Negative: <13 Indeterminate: 13 - 20 Low-Med Positive: >20 - 80 High Positive: >80 Cardiolipin Antibody IgA <9 0 - 11 APL U/mL [facility] ACCOUNT BILL Comment: Negative: <12 Indeterminate: 12 - 20 Low-Med Positive: >20 - 80 High Positive: >80 Blood BLOOD SPECIMEN / Unknown 07/18/2023 4:14 PM ENVIRONMENTAL HEALTH AND SAFETY LEADER 07/18/2023 Narrative Resulting Agency Comment [facility]: [facility] [address] [phone] Adrian Jaimes DO LAB - SEROLOGY ORDER GISELL [facility] ACCOUNT BILL [address] [place] [address] * (ABNORMAL) RACHEL PANEL COMPREHENSIVE (07/18/2023 4:14 PM ENVIRONMENTAL HEALTH AND SAFETY LEADER) Anti-dsDNA Quantitative <1 0 - 9 IU/mL [facility] ACCOUNT BILL Comment: Negative <5 Equivocal 5 - 9 Positive >9 PATROL DEPUTY SHERIFF Antibody <0.2 0.0 - 0.9 AI [facility] ACCOUNT BILL Ball (BON) Antibody <0.2 0.0 - 0.9 AI [facility] ACCOUNT BILL Antiscleroderma-70 Antibody <0.2 0.0 - 0.9 AI [facility] ACCOUNT BILL Sjogren's Antibodies (SSA) >8.0(H) 0.0 - 0.9 AI [facility] ACCOUNT BILL Sjogren's Antibodies (SSB) <0.2 0.0 - 0.9 AI [facility] ACCOUNT BILL Antichromatin Antibodies <0.2 0.0 - 0.9 AI [facility] ACCOUNT BILL María-1 Antibody <0.2 0.0 - 0.9 AI [facility] ACCOUNT BILL Centromere B Antibody <0.2 0.0 - 0.9 AI [facility] ACCOUNT BILL See Below [facility] ACCOUNT EJ Comment: Autoantibody Disease Association Condition Frequency --------- Antinuclear Antibody, SLE, mixed connective Direct (RACHEL-D) tissue diseases --------- dsDNA SLE 40 - 60% --------- Chromatin Drug induced SLE 90% SLE 48 - 97% --------- SSA (Ro) SLE 25 - 35% Sjogren's Syndrome 40 - 70% Lupus 100% --------- SSB (La) SLE 10% Sjogren's Syndrome 30% --------- Sm (anti-Ball) SLE 15 - 30% --------- PATROL DEPUTY SHERIFF Mixed Connective Tissue Disease 95% (U1 nRNP, SLE 30 - 50% anti-ribonucleoprotein) Polymyositis and/or Dermatomyositis 20% --------- Scl-70 (antiDNA Scleroderma (diffuse) 20 - 35% topoisomerase) Crest 13% --------- María-1 Polymyositis and/or Dermatomyositis 20 - 40% --------- Centromere B Scleroderma - Crest variant 80% Blood BLOOD SPECIMEN / Unknown 07/18/2023 4:14 PM ENVIRONMENTAL HEALTH AND SAFETY LEADER 07/18/2023 Narrative Resulting Agency Comment Lab Testing performed at: [facility] [employer] [address] [phone] Adrian Jaimes DO LAB - SEROLOGY ORDER GISELL [facility] ACCOUNT BILL [address] [place] [address] * THYROID PEROXIDASE ANTIBODY (07/18/2023 4:14 PM ENVIRONMENTAL HEALTH AND SAFETY LEADER) Thyroid Peroxidase TPO Antibody 23 0 - 34 IU/mL [facility] ACCOUNT BILL Blood BLOOD SPECIMEN / Unknown 07/18/2023 4:14 PM ENVIRONMENTAL HEALTH AND SAFETY LEADER 07/18/2023 Narrative Resulting Agency Comment Lab Testing performed at: [facility] [address] [phone] Adrian Jaimes DO LAB - CHEMISTRY ORDE RABLES Performing Organization Address City/[facility]/ZIP Co de Phone Number [facility] ACCOUNT BILL [address] [place] [address] * THYROGLOBULIN ANTIBODY (07/18/2023 4:14 PM ENVIRONMENTAL HEALTH AND SAFETY LEADER) Thyroglobulin Antibody <1.0 0.0 - 0.9 IU/mL [facility] ACCOUNT BILL Comment:Thyroglobulin Antibo dy measured by Mary John[employer] Blood BLOOD SPECIMEN / Unknown 07/18/2023 4:14 PM ENVIRONMENTAL HEALTH AND SAFETY LEADER 07/18/2023 Narrative Resulting Agency Comment Lab Testing performed at: [facility] [employer] [employer] [address] [facility] [phone] Adrina Jaimes DO LAB - CHEMISTRY ORDE RABLES [facility] ACCOUNT BILL [address] [place] [address] * (ABNORMAL) COMPLEMENT C3 C4 PANEL (07/18/2023 4:14 PM ENVIRONMENTAL HEALTH AND SAFETY LEADER) Complement C3 179(H) 82 - 167 mg/dL [facility] ACCOUNT BILL Complement C4 54(H) 12 - 38 mg/dL [facility] ACCOUNT BILL Blood BLOOD SPECIMEN / Unknown 07/18/2023 4:14 PM ENVIRONMENTAL HEALTH AND SAFETY LEADER 07/18/2023 Narrative Resulting Agency Comment Lab Testing performed at: [facility] [address] [facility] [id number] Adrian Jaimes DO LAB - CHEMISTRY CHENG GARSIA [facility] ACCOUNT BILL [address] [place] [address] * (ABNORMAL) CBC W/O DIFFERENTIAL (03/11/2023 6:05 AM CDT) Only the most recent of2 resultswithin the time period is included. WBC 13.1(H) 3.5 - 10.5 10 3/uL 03/11/2023 6:[address] [facility] RBC 4.38 3.80 - 5.20 10 6/uL 03/11/2023 6:[address] [facility] Hemoglobin 12.4 12.0 - 15.6 g/dL 03/11/2023 6:[address] [facility] Hematocrit 38.2 35.0 - 45.0 % 03/11/2023 6:[address] [facility] MCV 87.2 80.7 - 98.3 fL 03/11/2023 6:[address] [facility] MCH 28.3 26.7 - 34.0 pg 03/11/2023 6:[address] [facility] MCHC 32.5 30.8 - 35.9 g/dL 03/11/2023 6:[address] [facility] RDW-SD 39.2 36.0 - 50.0 fL 03/11/2023 6:[address] [facility] RDW-CV 12.3 11.2 - 14.8 % 03/11/2023 6:[address] [facility] Platelet Count 289 150 - 400 10 3/uL 03/11/2023 6:[address] [facility] MPV 9.8 9.4 - 12.9 fL 03/11/2023 6:[address] [facility] nRBC Absolute 0.00 0 10 3/uL 03/11/2023 6:[address] [facility] nRBC Auto 0.0 0 /100 WBC 03/11/2023 6:[address] [facility] Blood BLOOD SPECIMEN / Unknown Lab Venipuncture / Unknown 03/11/2023 6:05 AM CDT 03/11/2023 6:25 AM CDT Keyana Olivier MD LAB - HEMATOLOG Y ORDERABLES [address] [address], [facility] [place] [phone] * (ABNORMAL) BASIC METABOLIC PANEL (CALCIUM TOTAL) (03/11/2023 6:05 AM [facility]) Only the most recent of2 resultswithin the time period is included. BUN 5(L) 7 - 26 mg/dL 03/11/2023 6:[address] [facility] Creatinine 0.55(L) 0.56 - 0.96 mg/dL 03/11/2023 6:[address] [facility] Sodium 139 136 - 145 mmol/L 03/11/2023 6:[address] [facility] Potassium 3.8 3.5 - 4.5 mmol/L 03/11/2023 6:[address] [facility] Chloride 108(H) 98 - 107 mmol/L 03/11/2023 6:[address] [facility] CO2 21(L) 22 - 29 mmol/L 03/11/2023 6:[address] [facility] Glucose 100 70 - 115 mg/dL 03/11/2023 6:[address] [facility] Calcium 9.1 8.4 - 10.2 mg/dL 03/11/2023 6:[address] [facility] Anion Gap 14 8 - 18 03/11/2023 6:[address] [facility] BUN/Creatinine Ratio 9 7 - 23 03/11/2023 6:54 AM CDT [facility] Osmolality Calculated 285 270 - 300 mOsm/kg 03/11/2023 6:54 AM CDT [facility] eGFR by CKD-EPI >90 >=90 mL/min/1.7 3 m2 03/11/2023 6:54 AM CDT [facility] Blood BLOOD SPECIMEN / Unknown Lab Venipuncture / Unknown 03/11/2023 6:05 AM CDT 03/11/2023 6:34 AM CDT Keyana Olivier MD LAB - CHEMISTRY ORDERABLES [facility] [address] [place] [address], [facility] [place] [phone] * (ABNORMAL) PHOSPHORUS BLOOD (03/11/2023 6:05 AM CDT) Only the most recent of3 resultswithin the time period is included. Phosphorus 2.5(L) 2.9 - 5.1 mg/dL 03/11/2023 6:54 AM CDT [facility] Blood BLOOD SPECIMEN / Unknown Lab Venipuncture / Unknown 03/11/2023 6:05 AM CDT 03/11/2023 6:34 AM CDT Keyana Olivier MD LAB - CHEMISTRY ORDERABLES [facility] [address] [place] [address], [place] [phone] * MAGNESIUM BLOOD (03/11/2023 6:05 AM CDT) Only the most recent of3 resultswithin the time period is included. Magnesium 2.0 1.6 - 2.6 mg/dL 03/11/2023 6:54 AM CDT [facility] Blood BLOOD SPECIMEN / Unknown Lab Venipuncture / Unknown 03/11/2023 6:05 AM CDT 03/11/2023 6:34 AM CDT Keyana Olivier MD LAB - CHEMISTRY ORDERABLES [facility] [address] [place] [address], [facility] [place] [phone] * ETT LINE PERFORMABLE (03/10/2023 1:19 PM CDT) Narrative Richar Do DO - 03/10/2023 1:19 PM CDT Richar Do DO 03/10/2023 1:19 PM Endotracheal Tube Placement: Patient Location: OR. Intubation Event Date/Time: 03/10/2023 12:55 PM Procedure: intubation (36911). Procedure Section: Sedation: under general anesthesia. Indications for Airway Management: anesthesia Procedure pretreatments used? No Induction: standard IV Patient Position: sniffing Mask Ventilation: easy. Blade Type: Brandyn Blade Size: 3 Laryngoscopy View: grade 1 (full cords) Intubation Adjuncts: stylet Nasal Airway Size: 7 Tube: endotracheal tube Placement: oral Tube type: cuff - inflated Tube Size (MM): 7 Depth of Insertion (CM): 22 Measured From: lips Cuff Inflated With: air Number of Attempts: 1. Placement Verified By: direct visualization, bilateral breath sounds, chest auscultation and CO2 monitor CXR Findings: ETT in proper place. Tube secured with: adhesive tape. Dentition unchanged? Yes Difficult Airway? No. Procedure Start Time: 03/10/2023 12:55 PM. Staff Section Anesthesia Provider: Richar Do DO, Performed the procedure Provider #1: Steffanie Diez MD. Steffanie Diez MD GENERAL ANESTHESIA O RDERABLES * PATHOLOGY TISSUE (03/10/2023 1:18 PM CDT) Case Report Surgical Pathology Report Case: [id number] Authorizing Provider: Keyana Olivier MD Collected: 03/10/2023 01:18 PM Ordering Location: [facility] 7S ACUTE Received: 03/10/2023 03:25 PM Pathologist: Trudi Arrieta MD Specimen: Gallbladder, gallbladder c contents 03/11/2023 3:05 PM CDT [facility] Final Diagnosis Gallbladder, cholecystectomy (A): - Mild chronic cholecystitis - Cholelithiasis 03/11/2023 3:05 PM [facility] PATHOLOGY LAB Microscopic Description and Comment Microscopic examination substantiates the final diagnosis. 03/11/2023 3:05 PM [facility] PATH[facility]Y LAB Clinical History The patient is a 27-year-old woman with symptomatic cholelithiasis. 03/11/2023 3:05 PM [facility] LAB Gross Description The requisition and specimen(s) are identified with the patient's name Emely Mondragon. Received in formalin, specimen A , is a 9.7 x 3.0 x 1.8 cm gallbladder. The serosa is de la cruz, focally hyperemic, smooth and glistening. A defect is identified at the hepatic resection surface. The cystic duct is clamped and 0.1 cm in diameter. No periductal lymph node is identified. The lumen contains green viscous bile with a 1.5 x 1.1 x 0.9 cm yellow firm ovoid calculus impacting the cystic duct. The mucosa is de la cruz, focally hyperemic with focal areas of yellow stippling. The gallbladder wall averages 0.2 cm in thickness. The cystic duct margin and technical sales representatives sections from the gallbladder neck, body, fundus are submitted in A1./MF 03/11/2023 3:05 PM [facility] PATH[facility] LAB Pathologist Location at [facility] 03/11/2023 3:05 PM [facility] PATH[facility] Disclaimer The performance characteristics of all immunohistochemical and indirect immunofluorescence stains (if any) cited in this report were determined by the Histopathology Laboratory of [facility]. Some of these tests were developed by our own laboratory and have not been cleared or approved by the US Food and Drug Administration. The FDA does not require this test to go through premarket FDA review. These tests are used for clinical purposes. They should not be regarded as investigational or for research. This laboratory is certified under the Clinical Laboratory Improvement Amendments (CLIA) as qualified to perform high complexity clinical laboratory testing. This case has been personally reviewed and interpreted by the attending (teaching) pathologist. 03/11/2023 3:05 PM [facility] PATH[facility] LAB Embedded Images 03/11/2023 3:05 PM [facility] LAB Biopsy, Excision ENTIRE GALLBLADDER / Unknown 03/10/2023 1:18 PM CDT 03/10/2023 3:25 PM CDT Comment:Pre-op diagnosis: Cholecystitis [K81.9] Keyana Olivier MD LAB - PATHOLOGY /CYTOLOGY ORDERABLES Performing Organization Address City/[facility]/ZIP Co de Phone Number [facility] LAB [address] [facility] [place] [address], [facility] [place] [phone] * BLOOD TYPE VERIFICATION (03/09/2023 7:55 AM CDT) ABO Rh O POS 03/09/2023 9:0 5 AM CDT [facility] BLOOD BANK LAB Blood Bank BLOOD SPECIMEN / Unknown Lab Venipuncture / Unknown 03/09/2023 7:55 AM CDT 03/09/2023 8:19 AM CDT Jane Hunter MD LAB - BLOOD BANK ORD ERABLES Performing Organization Address [facility]/ZIP Co de Phone Number [facility] B[facility]OD [facility] LAB [address] [phone], [facility] [place] [phone] * PT-INR [facility] (03/09/2023 4:53 AM CDT) Only the most recent of2 resultswithin the time period is included. PT 13.9 12.1 - 14.8 Seconds 03/09/2023 6:04 AM CDT [facility] INR 1.1 See Comment 03/09/2023 6:04 AM CDT [facility] Comment:The suggested therap eutic range for standard coumadin (warfarin) therapy is an INR of 2.0-3.0. For high-risk patients (Mechanical Mitral Valve Prosthesis, etc.), the suggested prophylactic therapeutic range is an INR of 2.5-3.5. Blood BLOOD SPECIMEN / Unknown Lab Venipuncture / Unknown 03/09/2023 4:53 AM CDT 03/09/2023 5:31 AM CDT Kelvin Gauthier MD LAB - COAGULATION OR DERABLES [facility] [address] [place] [address], [facility] [place] [phone] * TYPE + SCREEN PANEL (03/09/2023 4:53 AM CDT) [facility] Antibody Screen NEG 6:19 AM CDT [facility] BLOOD BANK LAB ABO Rh O POS 03/09/2023 6:19 AM CDT [facility] BLOOD [facility] LAB Blood Bank BLOOD SPECIMEN / Unknown Lab Venipuncture / Unknown 03/09/2023 4:53 AM CDT 03/09/2023 5:33 AM CDT Kelvin Gauthier MD LAB - BLOOD BANK ORD ERABLES [facility] [address] [place] [address], [facility] [place] [phone] * (ABNORMAL) CBC W AUTO DIFFERENTIAL (03/09/2023 4:53 AM CDT) Only the most recent of2 resultswithin the time period is included. [facility] WBC 8.2 3.5 - 10.5 10 3/uL 03/09/2023 5:[address] [facility] RBC 4.19 3.80 - 5.20 10 6/uL 03/09/2023 5:[address] [facility] Hemoglobin 11.9(L) 12.0 - 15.6 g/dL 03/09/2023 5:[address] [facility] Hematocrit 36.5 35.0 - 45.0 % 03/09/2023 5:[address] [facility] MCV 87.1 80.7 - 98.3 fL 03/09/2023 5:[address] [facility] MCH 28.4 26.7 - 34.0 pg 03/09/2023 5:[address] [facility] MCHC 32.6 30.8 - 35.9 g/dL 03/09/2023 5:[address] [facility] RDW-SD 39.8 36.0 - 50.0 fL 03/09/2023 5:[address] [facility] RDW-CV 12.5 11.2 - 14.8 % 03/09/2023 5:[address] [facility] Platelet Count 247 150 - 400 10 3/uL 03/09/2023 5:[address] [facility] MPV 9.9 9.4 - 12.9 fL 03/09/2023 5:[address] [facility] nRBC Absolute 0.00 0 10 3/uL 03/09/2023 5:[address] [facility] nRBC Auto 0.0 0 /100 WBC 03/09/2023 5:[address] [facility] Neutrophils % 53.1 35.0 - 70.0 % 03/09/2023 5:[address] [facility] Lymphocytes % 36.5 20.0 - 43.0 % 03/09/2023 5:[address] [facility] Monocytes % 6.6 5.0 - 13.0 % 03/09/2023 5:[address] [facility] Eosinophils % 3.4 0.0 - 6.0 % 03/09/2023 5:[address] [facility] Basophil % 0.2 0.0 - 2.0 % 03/09/2023 5:[address] [facility] Neutrophils Absolute 4.32 1.60 - 7.00 10 3/uL 03/09/2023 5:[address] [facility] Lymphocyte Absolute 2.98 1.10 - 3.90 10 3/uL 03/09/2023 5:[address] [facility] Monocytes Absolute 0.54 0.26 - 1.07 10 3/uL 03/09/2023 5:[address] [facility] Eosinophils Absolute 0.28 0.00 - 0.47 10 3/uL 03/09/2023 5:[address] [facility] Basophils Absolute 0.02 0.00 - 0.08 10 3/uL 03/09/2023 5:[address] [facility] Immature Granulocytes % 0.2 0.0 - 1.0 % 03/09/2023 5:[address] [facility] Immature Granulocytes Absolute 0.02 03/09/2023 5:[address] [facility] Blood BLOOD SPECIMEN / Unknown Lab Venipuncture / Unknown 03/09/2023 4:53 AM CDT 03/09/2023 5:31 AM CDT Kelvin Gauthier MD LAB - HEMATOLOGY ORD ERABLES [facility] [address] [place] [address], [facility] [place] [phone] * (ABNORMAL) COMPREHENSIVE METABOLIC PANEL (03/09/2023 4:53 AM CDT) Only the most recent of2 resultswithin the time period is included. BUN 7 7 - 26 mg/dL 03/09/2023 6:[address] [facility] Creatinine 0.52(L) 0.56 - 0.96 mg/dL 03/09/2023 6:[address] [facility] Sodium 138 136 - 145 mmol/L 03/09/2023 6:[address] [facility] Potassium 3.7 3.5 - 4.5 mmol/L 03/09/2023 6:[address] [facility] Chloride 109(H) 98 - 107 mmol/L 03/09/2023 6:[address] [facility] CO2 23 22 - 29 mmol/L 03/09/2023 6:[address] [facility] Glucose 80 70 - 115 mg/dL 03/09/2023 6:[address] [facility] Calcium 8.0(L) 8.4 - 10.2 mg/dL 03/09/2023 6:[address] [facility] Protein Total 6.2 6.0 - 8.3 g/dL 03/09/2023 6:[address] [facility] Albumin 3.0(L) 3.4 - 5.0 g/dL 03/09/2023 6:[address] [facility] Bilirubin Total 0.4 0.2 - 1.2 mg/dL 03/09/2023 6:[address] [facility] Alkaline Phosphatase 70 40 - 150 U/L 03/09/2023 6:[address] [facility] ALT 13 5 - 55 U/L 03/09/2023 6:04 AM CDT [facility] AST 13 5 - 34 U/L 03/09/2023 6:[address] [facility] Anion Gap 10 8 - 18 03/09/2023 6:[address] [facility] BUN/Creatinine Ratio 13 7 - 23 03/09/2023 6:04 AM T [facility] Osmolality Calculated 283 270 - 300 mOsm/kg 03/09/2023 6:[address] [facility] Albumin/Globulin Ratio 0.9(L) 1.1 - 2.3 03/09/2023 6:[address] [facility] eGFR by CKD-EPI >90 >=90 mL/min/1.7 3 m2 03/09/2023 6:[address] [facility] Blood BLOOD SPECIMEN / Unknown Lab Venipuncture / Unknown 03/09/2023 4:53 AM CDT 03/09/2023 5:30 AM CDT Kelvin Gauthier MD LAB - CHEMISTRY [facility] Organization Address City/State/ZIP Co de Phone Number [facility] [address] [place] [phone], [facility] [place] [phone] * US ABDOMEN LIMITED (03/08/2023 1:56 PM CDT) Anatomical Region Laterality Modality Abdomen Ultrasound 03/08/2023 1:51 PM CDT Impressions 03/08/2023 6:05 PM CDT IMPRESSION: 1.No discrete hepatic lesion or intrahepatic biliary ductal dilatation. 2.1.3 cm gallstone in the gallbladder neck without pericholecystic fluid or gallbladder wall thickening. The gallbladder is not distended however Dick's sign is positive. If the patient has right upper quadrant symptoms, HIDA scan may be obtained. > Dictated by Jona Pierce MD, PhD (residential child care counselor). > Dictated by Jona Pierce MD ([employer]) 03/08/2023 1:51 PM IByron MD have personally reviewed and interpreted this examination/study. > Interpreting Provider: Byron Snyder MD on 03/08/2023 6:05 PM Narrative 03/08/2023 6:05 PM CDT PROCEDURE: US ABDOMEN LIMITED, DATE/TIME OF EXAM: 03/08/2023 1:56 PM, LOCATION [facility] INDICATION: R10.11: RUQ pain ADDITIONAL CLINICAL INFORMATION: Ordering Provider Reason For Exam: r/o cholecystitis COMPARISON: No prior studies available for review. OSH HIDA scan report (care everywhere) from 07/23/2019 was reviewed. FINDINGS: Liver: The liver is normal in echotexture and echogenicity with smooth surface contour. No discrete hepatic mass or intrahepatic biliary dilatation is seen. Color Doppler evaluation demonstrates patency of the hepatic and portal veins. No ascites is present. Gallbladder: A gallstone measuring up to 1.3 cm is seen within the gallbladder neck without pericholecystic fluid. The gallbladder wall is normal in thickness, measuring 2 mm. Sonographic Dick's sign is positive. The common bile duct is nondilated, measuring 3 mm. Right kidney: The right kidney measures 9.2 x 5.4 x 5.0 cm, volume: 130 mL. Limited views of the right kidney reveal no evidence of nephrolithiasis or hydronephrosis. Spleen: The spleen measures 10.7 cm in length. The visible pancreas is normal in echogenicity. Procedure Note Billie Snyder MD - 03/08/2023 PROCEDURE: US ABDOMEN LIMITED, DATE/TIME OF EXAM: 03/08/2023 1:56 PM, LOCATION [facility] INDICATION: R10.11: RUQ pain ADDITIONAL CLINICAL INFORMATION: Ordering Provider Reason For Exam: r/o cholecystitis COMPARISON: No prior studies available for review. OSH HIDA scan report (care everywhere) from 07/23/2019 was reviewed. FINDINGS: Liver: The liver is normal in echotexture and echogenicity with smooth surface contour. No discrete hepatic mass or intrahepatic biliary dilatation is seen. Color Doppler evaluation demonstrates patency of the hepatic and portal veins. No ascites is present. Gallbladder: A gallstone measuring up to 1.3 cm is seen within the gallbladder neck without pericholecystic fluid. The gallbladder wall is normal in thickness, measuring 2 mm. Sonographic Dick's sign ispositive. The common bile duct is nondilated, measuring 3 mm. Right kidney: The right kidney measures 9.2 x 5.4 x 5.0 cm, volume: 130mL. Limited views of the right kidney reveal no evidence of nephrolithiasisor hydronephrosis. Spleen: The spleen measures 10.7 cm in length. The visible pancreas is normal in echogenicity. IMPRESSION: 1.No discrete hepatic lesion or intrahepatic biliary ductal dilatation. 2.1.3 cm gallstone in the gallbladder neck without pericholecystic fluidor gallbladder wall thickening. The gallbladder is not distended however Dcik's sign is positive. If the patient has right upper quadrant symptoms, HIDA scan may be obtained. > Dictated by Jona Pierce MD, PhD (residential child care counselor). > Dictated by Jona Pierce MD ([employer]) 03/08/2023 1:51PM IByron MD have personally reviewed and interpreted this examination/study. > Interpreting Provider: Byron Snyder MD on 03/08/2023 6:05 PM Kelvin Gauthier MD US ORDERABLES * HCG BETA BLOOD QUANTITATIVE (03/08/2023 12:59 PM CDT) [facility] Beta-hCG Total Quantitative <3 mIU/mL 03/08/2023 2:15 PM CDT [facility] Comment: HCG Numeric Result Interpretation: Non- Females: < 5 mIU/mL Post-Menopausal Females: < 7 mIU/mL This assay is cleared for use in the early detection of only. It is not approved for any other uses such as tumor marker screening, tumor marker monitoring, etc. and should not be used for any other purposes. Blood BLOOD SPECIMEN / Unknown Venipuncture / Unknown 03/08/2023 12:59 PM CDT 03/08/2023 1:25 PM CDT Kelvin Gauthier MD LAB - CHEMISTRY [facility] Organization Address City/State/ZIP Co de Phone Number [facility] [address] [place] [phone], [facility] [place] [phone] * LIPASE BLOOD (03/08/2023 12:59 PM CDT) [facility] Lipase 15 8 - 78 U/L 03/08/2023 2:08 PM CDT [facility] Blood BLOOD SPECIMEN / Unknown Venipuncture / Unknown 03/08/2023 12:59 PM CDT 03/08/2023 1:25 PM CDT Narrative [facility] - 03/08/2023 2:08 PM CDT Lipase results from the [employer] analyzer may not be comparable with other methodologies. Kelvin Gauthier MD LAB - CHEMISTRY [facility] [address] [place] [phone], [facility] [place] [phone] Care Teams Electrical Maintenance Engineer Relationship Specialty Start Date End Date Khari Chance MD [phone] [id number] PCP - General Family Medicine 03/09/23
--- OUTSIDE RECORDS SUMMARY | 2024-10-20 07:51 | XMS_ITS | Data Portability ---
Author Organization [facility] [place] Address [address] [place] [address] [place] [address] Care Team Providers Care Jira Administrator Name Role Phone TRUPTIERIK Zuñiga Primary Care Provider Assessment Encounter Date Assessment Date Assessment LastModified by Organization Details LastModified Time 07/31/2024 07/31/2024 Annual gynecological exam performed. Patient will come back in a year unless there are new symptoms. [email or web address] Not available 07/31/2024 15:44:55 Plan of Treatment Reminders Order Date Submit Date Provider Last Modified By Organization Details Last Modified Time Details Appointments None recorded. Lab test, urine [address], [address], [address], [place], [address], 3 18:08:53 Referral None recorded. Procedures None recorded. Surgeries None recorded. Imaging US, breast, bilateral, complete [address] [facility], [address], [place], [address], 4 09:11:20 Medication Orders metformin ER 500 mg tablet,ext ended release 24 hr 2022 023 [id number], [address], [place], [place], [id number], 3 19:06:30 Nexplanon 68 mg subdermal implant [facility] 3 09:38:46 Patient TargetsNo targets recorded. Patient InstructionsNo instructions recorded. Reason for Referral None Reported. Results Created Date Observation Date Name Description Value Unit Range Abnormal Flag Note LastModifiedBy Organization Detail LastModifiedTime 04/06/20 23 04/06/2023 BHCG, QUANT ITATI VE B-HCG <0.2 mIU/m L This assay was perfo rmed using [employer] ratio n reage nts and test kits. Value s obtai diego with other assay metho ds or kits canno t be used inter mckeon eably . Refer ence Range s: Non-p regna nt, preme nopau rian women : 0.0-5 .3 mIU/m L Postm enopa usal women : 0.0-7 .0 mIU/m L Bell l Pregn lauren: Gesta anu l Age bHCG Conc. - mIU/m L 3 Weeks 5.8 - 71.7 4 Weeks 9.5 - 750 5 Weeks 217-7 138 6 Weeks 158 - 31,79 5 7 Weeks 3,697 - 162,5 63 8 Weeks 32,06 5 - 149,5 71 9 Weeks 63,80 3 - 151,4 10 10 Weeks 46,50 9 - 186,9 77 12 Weeks 27,83 2 - 210,6 12 14 Weeks 13,95 0 - 62,53 0 15 Weeks 12,03 9 - 70,97 1 16 Weeks 9,040 - 56,45 1 17 Weeks 8,175 - 55,86 8 18 Weeks 8,099 - 58,17 6 Not Available [facility] (Lab) [address], [place], [address], 04/12/2023 23:22:53 04/06/20 23 04/06/2023 ESTRA DIOL estradiol 48.6 pg/mL This assay was perfo rmed using [employer] ratio n reage nts and test kits. Value s obtai diego with other assay metho ds or kits canno t be used inter mckeon eably . Femal e Estra diol Range s: Folli cular phase 12.4- 233 pg/mL Ovula tion phase 41.0- 398 pg/mL Lutea l phase 22.3- 341 pg/mL Postm enopa usal< 5-138 pg/mL Healt hy Pregn ant Women 1st Trime ster1 54-32 43 pg/mL 2nd Trime ster1 561-2 1280 pg/mL 3rd Trime ster8 525-> 82021 pg/mL Not Available [facility] (Lab) [address] [place], [address], 04/12/2023 23:22:54 04/06/20 23 04/06/2023 PROGE STERO NE progesterone 0.23 NG/mL This assay was perfo rmed using [employer] ratio n reage nts and test kits. Value s obtai diego with other assay metho ds or kits canno t be used inter mckeon eay . Femal e Proge stero ne Range s: Folli cular phase 0.06- 0.89 ng/mL Ovula tion phase 0.12- 12.00 ng/mL Lutea l phase 1.83- 23.90 ng/mL Postm enopa usal< 0.05- 0.13 ng/mL Healt hy Pregn ant Women 1st Trime ster1 1.0-4 4.30 2nd Trime ster2 5.40- 83.30 3rd Trime ster5 8.70- 214.0 0 Not Available [facility] (Lab) [address] [place], [address], 04/12/2023 23:22:54 04/06/20 23 04/06/2023 PROLA CTIN prolactin, total 12.70 NG/mL 4.79-2 3.30 This assay was perfo rmed using [employer] ratio n reage nts and test kits. Value s obtai diego with other assay metho ds or kits canno t be used inter mckeon eably . Not Available [facility] (Lab) [address] [place], [address], 04/12/2023 23:22:55 04/06/20 23 04/06/2023 LH (LUTE NIZIN G HORMO NE) LH 14.9 mIU/m L This assay was perfo rmed using [employer] n reage nts and test kits. Value s obtai diego with other assay metho ds or kits canno t be used inter [facility] . Femal es Mid-F ollic ular: 2.4-1 2.6 mIU/m L Mid-C ycle: 14.0- 95.6 mIU/m L Mid-L uteal : 1.0-1 1.4 mIU/m L Postm enopa use: 7.7-5 8.5 mIU/m L Not Available [facility] (Lab) [address], [place], [address], 04/12/2023 23:22:55 04/06/20 23 04/06/2023 FSH FSH 7.4 mIU/m L This assay was perfo rmed using [employer] reage nts and test kits. Value s obtai diego with other assay metho ds or kits canno t be used inter [facility] . Femal es Folli cular : 3.5-1 2.5 mIU/m L Ovula tion: 4.7-2 1.5 mIU/m L Lutea l: 1.7-7 .7 mIU/m L Postm enopa use: 25.8- 134.8 mIU/m L Not Available [facility] (Lab) [address] , [place], [address], 04/12/2023 23:22:55 04/06/20 23 04/06/2023 DHEA SULFA TE DHEA-sulfate 109 ug/dL Femal e Range s Age(y ) Range (ug/d L) 10-15 34-28 0 15-20 65-36 8 20-25 148-4 07 25-35 99-34 0 35-45 61-33 7 45-55 35-25 6 55-65 19-20 5 65-75 9-246 > 75 12-15 4 Not Available [facility] (Lab) [address] , [place], [address], 04/12/2023 23:22:56 04/06/20 23 04/06/2023 TSH, REFLE X FREE T4 TSH 0.97 uIU/m L 0.30-5 .33 Not Available [facility] (Lab) [address], [place], [address], 04/12/2023 23:22:56 04/06/20 23 04/06/2023 HEMOG LOBIN A1C hemoglobin A1C 5.1 % 0-5.6 The Ameri can Diabe felecia Assoc iatio n recom mends that a prima ry goal of thera py shoul d be a HBA1C of < 7% and that physi cians shoul d reeva luate the treat ment regim en in patie nts with HBA1C value s consi stent ly > 8%. <5.7% Bell l 5.7 - 6.4% Incre ased risk for diabe felecia >=6.5 % Diagn ostic of diabe felecia <7.0% Goal of thera py >8.0% Actio n sugge sted Not Available [facility] (Lab) [address], [place], [address], 04/12/2023 23:22:56 04/06/20 23 04/06/2023 HUMAN SEX HORMO NE AJITH NG GLOBU ROGER sex hormone binding globulin 17.7 nmole s/L 18.2-1 35.5 low Not Available [facility] (Lab) [address] [place], [address], 04/12/2023 23:22:57 04/06/20 23 04/06/2023 TESTO STERO NE, FREE( DIALY SIS) AND TOTAL (LC/M S/MS) testosterone , total 46 NG/dL 2-45 high For addit ional serge chatman e refer to http: //brandi justice.que stdia gnost ics.c om/fa q/Tot alTes toste Mariluz [facility] (This link is being provi ded for infomark nunez/ educa anu l purpo ses only. ) This test was devel oped and its nayana tical perfo rmanc e ruby cteri stics have been deter mined by [facility]. It has not been clear ed or appro daniela by the FDA. This assay has been valid ated pursu ant to the CLIA regul ation s and is used for clini jada purpo ses. Not Available [facility] (Lab) [address], [place], [address], 04/12/2023 23:22:57 04/06/2004/06/2023 TESTO STERO NE, FREE( DIALY SIS) AND TOTAL (LC/M S/MS) testosterone , free 10.4 pg/mL 0.1-6. 4 high This test was devel oped and its nayana tical perfo rmanc e ruby cteri stics have been deter mined by [facility]. It has not been clear ed or appro daniela by the FDA. This assay has been valid ated pursu ant to the CLIA regul ation s and is used for clini jada purpo ses. Perfo rming Organ izati on Infor matio n: Site ID: [id number] Name: [employer] [facility] [place] Addre ss: [id number] [place] [address] Direc tor: Gustavo lamas M.D. Not Available [facility] (Lab) [address], [place], [address], 04/12/2023 23:22:57 04/06/20 23 04/06/2023 17-OH PROGE STERO NE 17-hydroxypr ogesterone, lc/MS/MS 45 NG/dL Adult Femal e Refer ence Range s for 17-Hy droxy proge stero ne: Pre-M enopa usal Mid Folli cular : 23-10 2 ng/dL Pre-M enopa usal Surge : 67-34 9 ng/dL Pre-M enopa usal Mid Lutea l: 139-4 31 ng/dL Postm enopa usal Phase : < or = 45 ng/dL Pregn lauren: First Trime ster: 78-45 7 ng/dL Secon d Trime ster: 90-35 7 ng/dL Third Trime ster: 144-5 78 ng/dL This test was devel oped and its nayana tical perfo rmanc e ruby cteri stics have been deter mined by [facility] [employer] . It has not been clear ed or appro daniela by FDA. This assay has been valid ated pursu ant to the CLIA regul ation s and is used for clini jada purpo ses. Perfo rming Organ izati on Infor mateladio n: Site ID: [id number] Name: [facility] [place] , Addre ss: [id number] [place] [address] Direc tor: Latanya trotter MD,Ph D,MAIA Not Available [facility] (Lab) [address], [place], [address], 04/12/2023 23:22:58 04/20/20 23 04/20/2023 IMAGE GUIDE D PAP, REFLE X HPV IF ASCUS ONLY image guided Pap, reflex HPV ASCUS only SEE RESULT S BELOW CASE REPOR T: Cytol ogy Gynec ologi jada Repor t Case: [id number] Autho nancy g Provi craig: Gary Parnell Colle cted: 04/20 1737 [employer]INATOR Order ing Locat ion: [place] Patho logy Recei daniela: 04/21 0832 First Scree n: Brooke Garcia Rescr een: Artur salas, Sofia [place], [place] Speci men: Scree monica Pap - Image d, Cervi x STATE MENT OF ADEQU ACY: Satis facto ry for evalu ation Trans forma tion zone compo nent prese nt FINAL DIAGN OSIS: Negat thu for Intra epith elial Hien justice or Everette maxwell (NIL) . Elect shy hollis papito d by Artur salas, Sofia [place], [place] on 2022 at 7:55 PM ----- ----- ----- ----- ----- ----- ----- ----- ----- ----- ----- ----- ----- ----- ----- ----- ----- ---- COMME NT: This speci men was revie wed by a Cytot echno logis t and/o r Patho logis t (as indic ated in this repor t) after evalu ation using the Thinp rep Imagi ng Syste m. CLINI JADA INFOR MATIO N: Menst rual Statu s: LMP (if appli cable ): Clini jada Histo ry/Pr eviou s Pap: Type of Neopl bruna (if appli cable ): Signi fican t Clini jada Findi ngs: Other Histo ry: Hormo art (if appli cable ): PAP EDUCA ANU L NOTE: The Pap Test is a scree monica test with an inher ent false negat thu rate. Liqui d-bas ed sampl ing may decre ase, but will not elimi dilip, false negat thu resul ts. A negat thu resul t does not precl ude the prese nce and/o r devel opmen t of disea se, since the prese nce of abnor mal cells in the sampl e depen ds on the locat ion of the lesio n and sampl ing techn ique. Deangelo nued regul ar scree monica is the best metho d of cance r preve ntion . If repor camilo cytol ogic findi ng do not corre late with physi jada and/o r histo rical findi ngs, furth er inves tigat ion is recom svitlana d, as clini nuris molina nted. Not Available [facility] (Lab) [address], [place], [address], 04/22/2023 13:11:07 04/20/2004/20/2023 SURGI JADA PATHO LOGY surgical pathology SEE RESULT S BELOW CASE REPOR T: Surgi jada Patho logy Repor t Case: [id number] Autho nancy bruno Provi craig: Gary Parnell, [place] cted: 04/20 1737 [employer] MEDIC[employer] COORDINATOR Order ing Locat ion: [place] Patho logy Recei daniela: 04/21 0332 Patho logis t: Mica Jim MD Speci men: Endom etriu m, EMB FINAL DIAGN OSIS: Endom etriu m, biops y: -Diso rdere d proli ferat thu endom etriu m. -No hyper plasi a or malig alissa ident ified . -Deep er level s are exami diego. Elect shy hollis papito d by Mica Jim MD on 2022 at 12:06 PM ----- ----- ----- ----- ----- ----- ----- ----- ----- ----- ----- ----- ----- ----- ----- ----- ----- ---- CLINI JADA INFOR MATIO N: n93.9 MICRO SCOPI C DESCR IPTIO N: A micro scopi c exami natio n was perfo rmed. GROSS DESCR IPTIO N: A. Endom etriu m. The speci men is label ed with the patie nt's name, demog raphi cs and EM BX . Recei daniela in forma roger is a 0.8 x 0.3 x 0.1 cm aggre gate of de la cruz-p ink tissu e and mucoi d mater ial. The entir e speci men is submi tted in one casse tte. Gross ed by Maribel Cornelius Not Available [facility] (Lab) [address], [place], [address], 04/22/2023 13:11:07 04/20/2004/20/2023 pregn lauren test, urine HCG negati ve Not Available [facility] [address], [place], [address], 04/20/2023 17:38:32 04/27/20 23 04/27/2023 pregn lauren test, urine HCG negati ve Not Available [facility] [address], [place], [address], 04/27/2023 17:54:21 07/31/20 24 07/31/2024 IMAGE GUIDE D PAP, REFLE X HPV IF ASCUS ONLY image guided Pap, reflex HPV ASCUS only SEE RESULT S BELOW CASE REPOR T: Cytol ogy Gynec ologi jada Repor t Case: [id number] Autho risalima g Provi craig: Tamra Mcclendon MD Colle cted: 07/31 1523 Order ing Locat ion: [place] Patho logrenu Recei daniela: 08/01 1151 First Scree n: Brooke Garcia een: Efra Avitia , [place] Speci men: Scree monica Pap - Image d, Cervi x STATE MENT OF ADEQU ACY: Satis facto ry for evalu ation Trans forma tion zone compo nent prese nt ----- ----- ----- ----- ----- ----- ----- ----- ----- ----- ----- ----- ----- ----- ----- ----- ----- ---- FINAL DIAGN OSIS: Negat thu for Intra epith elial Hien justice or Everette maxwell (NIL) . Elect shy cobos d by Efra Avitia , CT on 08/09 at 7:46 PM ----- ----- ----- ----- ----- ----- ----- ----- ----- ----- ----- ----- ----- ----- ----- ----- ----- ---- COMME NT: This speci men was revie wed by a Cytot echno logis t and/o r Patho logis t (as indic ated in this repor t) after evalu ation using the Thinp rep Imagi ng Syste m. CLINI JADA INFOR MATIO N: Menst rual Statu s: LMP (if appli cable ): Clini jada Histo ry/Pr eviou s Pap: Type of Neopl bruna (if appli cable ): Signi fican t Clini jada Findi ngs: Other Histo ry: Hormo art (if appli cable ): PAP EDUCA ANU L NOTE: The Pap Test is a scree monica test with an inher ent false negat thu rate. Liqui d-bas ed sampl ing may decre ase, but will not elimi dilip, false negat thu resul ts. A negat thu resul t does not precl ude the prese nce and/o r devel opmen t of disea se, since the prese nce of abnor mal cells in the sampl e depen ds on the locat ion of the lesio n and sampl ing techn ique. Deangelo nued regul ar scree monica is the best metho d of cance r preve ntion . If repor camilo cytol ogic findi ng do not corre late with physi jada and/o r histo rical findi ngs, furth er inves tigat ion is recom svitlana d, as clini nuris molina nted. Not Available [facility] (Lab) [address], [place], [address], 08/09/2024 20:49:12 04/08/20 23 04/08/2023 US, pelvi s No observ ation record ed. [facility] [address], [place], [address], 04/08/2023 17:30:29 04/08/20 23 04/08/2023 US, trans gato al No observ ation record ed. [facility] [address], [place], [address], 04/08/2023 17:30:55 04/08/20 23 04/08/2023 US, pelvi s No observ ation record ed. [facility] [address], [place], [address], 04/17/2023 13:25:04 06/15/20 24 06/15/2024 US, angel t, bilat eral, compl ete No observ ation record ed. [facility] [address], [place], [address], 06/19/2024 09:47:18 Result Notes None recorded. Procedures Surgical History Date Name Laterality Status Provider Name and Address Organization Details Recorded Time 023 Control Implant Insertion completed Glory Gonzalez [facility] [address], [place], [address], [facility] 04/27/2023 18:14:33 023 Endometrial Biopsy completed Glory Gonzalez [facility]- [address], [place], [address], [facility] 04/27/2023 13:36:54 023 Date of Last Pap Smear completed [facility] 04/27/2023 17:53:07 020 completed [facility] 04/06/2023 15:54:42 020 Date of Last Colonoscopy completed [facility] 04/06/2023 15:54:42 tonsilectomy/adeno ids completed [facility] 04/06/2023 15:54:51 Cholecystectomy completed [facility] 04/06/2023 15:54:51 Colonoscopy completed [facility] 04/06/2023 15:54:51 Imaging Results Imaging Date Name Status LastModified by Organization Details LastModified Time 04/08/2023 US, pelvis completed [facility] [address], [place], [address], 04/08/2023 17:30:29 04/08/2023 US, transvaginal completed angelia corey [address], [place], [address], 04/08/2023 17:30:55 04/08/2023 US, pelvis completed JOIE Aiyana [address], [place], [address], 04/17/2023 13:25:04 06/15/2024 US, breast, bilateral, complete completed [facility] [address], [place], [address], 06/19/2024 09:47:18 Procedure Notes None recorded. Medical Equipment None Reported. Allergies Allergen ID Allergen Name Allergen Category Reaction Reaction Severity Criticality Documentation Date Start Date Code Code System Note Provider Name and Address Organization Details Recorded Time 61802 morphine medicatio n anaphylax is severe Not available 04/06/2023 7052 RxNorm Augusta abernathy [facility] 3 15:54:32 15272 Toradol medicatio n other severe Not available 04/06/2023 42995 RxNorm Augusta abernathy [facility] 3 15:54:32 Medications Name Sig Start Date Stop Date Status Note LastModified by Organization Details LastModified Time fluoxetine 40 mg capsule active Not Available Not Available Not Available pimecrolimu s 1 % topical cream APPLY TO AFFECTED AREAS ON FACE AND ANKLE TWICE DAILY active Not Available Not Available No t Available sumatriptan 50 mg tablet active Not Available Not Available Not Available famotidine 20 mg tablet TAKE 1 TABLET BY MOUTH TWICE DAILY active Not Available Not Available No t Available lorazepam 0.5 mg tablet TAKE 1 TABLET BY MOUTH DAILY NEEDED FOR SEVERE ANXIETY active Not Available Not Available No t Available promethazin e 25 mg tablet TAKE 1/2 TABLET BY MOUTH EVERY 6 HOURS NEEDED FOR NAUSEA active Not Available Not Available No t Available polyethylen e glycol 3350 17 gram/dose oral powder TAKE DIRECTED BY THE OFFICE active Not Available Not Available No t Available methylpredn isolone 4 mg tablets in a dose pack DIRECTED active Not Available Not Available No t Available metformin ER 500 mg tablet,exte nded release 24 hr Take 3 tablet(s) every day by oral route at dinner for 90 days. 2024 active Not Available Not Available Not Avai lable colestipol 1 gram tablet active Not Available Not Available Not Available clindamycin 1 % lotion active Not Available Not Available N ot Available topiramate 50 mg tablet active Not Available Not Available Not Available biotin active Not Available Not Availa ble Not Available clonazepam active Not Available Not Av ailable Not Available topiramate 07/31 completed Not Available Not Available Not Available Lorazepam Intensol active Not Available Not Available Not Available Fluoxetine active Not Available Not Av ailable Not Available Centrum Ultra Women's active Not Available Not Available Not Available tranexamic acid 650 mg tablet TAKE 2 TABLETS BY MOUTH THREE TIMES DAILY FOR 5 DAYS active Not Available Not Available No t Available Natural Psyllium Fiber active Not Available Not Available Not Available Nexplanon 68 mg subdermal implant Inject 1 implant by subcutane ous route. 2022 active Not Available Not Available Not Avai lable keratin active Not Available Not Avail able Not Available mecobalamin (vitamin B12) 5,000 mcg chewable tablet active Not Available Not Available Not Available Vitals Date Recorded Body height Body mass index (BMI) Body weight Systolic blood pressure Diastolic blood pressure Provider Name and Address Organization Details Last Updated DateTime 04/27/2023 164.47 cm 42.4 kg/m2 611997.8 7 g 123 mm[Hg] 74 mm[Hg] Augusta Kaplan [facility] 3 17:52:38 Date Recorded Body height Body mass index (BMI) Body weight Systolic blood pressure Diastolic blood pressure Provider Name and Address Organization Details Last Updated DateTime 07/13/2023 164.47 cm 43.9 kg/m2 549556.2 g 115 mm[Hg] 73 mm[Hg] Augusta Kaplan [facility] 3 18:51:21 Date Recorded Body height Body mass index (BMI) Body weight Systolic blood pressure Diastolic blood pressure Provider Name and Address Organization Details Last Updated DateTime 04/27/2024 164.47 cm 45.5 kg/m2 681294.9 7 g 96 mm[Hg] 66 mm[Hg] Minerva Roseline [facility] 4 15:09:32 Date Recorded Body height Body mass index (BMI) Body weight Systolic blood pressure Diastolic blood pressure Provider Name and Address Organization Details Last Updated DateTime 07/31/2024 164.47 cm 44.3 kg/m2 273739.3 9 g 100 mm[Hg] 63 mm[Hg] Tia Nicole [facility] 4 15:48:32 Social History Question Answer Notes LastModified by Organizat ion Details LastModified Time Tobacco Smoking Status Never Smoker Jen abernathy [facility] 07/13/2023 18:49:48 What Is Your Level Of Alcohol Consumption? None Information not available 04/06/2023 Are You Blind Or Do You Have Difficulty Seeing? Yes Information not available 04/06/2023 What Is Your Level Of Caffeine Consumption? Occasional Information not available 04/06/2023 How Much Tobacco Do You Chew? None Information not available 04/06/2023 In The 14 Days Before Symptom Onset, Have You Had Close Contact With A Laboratory-confir med COVID-19 While That Case Was Ill? No Information not available 04/06/2023 In The 14 Days Before Symptom Onset, Have You Had Close Contact With A Person Who Is Under Investigation For COVID-19 While That Person Was Ill? No Information not available 04/06/2023 Have You Been To An Area Known To Be High Risk For COVID-19? No Information not available 04/06/2023 Are You Deaf Or Do You Have Serious Difficulty Hearing? No Information not available 04/06/2023 What Type Of Diet Are You Following? REGULAR Information not available 04/06/2023 What Is The Highest Grade Or Level Of School You Have Completed Or The Highest Degree You Have Received? 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 No Information not available 04/06/2023 Do You Use Protection During Sex? Always Information not available 04/06/2023 Do You Use Your Seat Belt Or Car Seat Routinely? Yes Information not available 04/06/2023 Do You Have Smoke And Carbon Monoxide Detectors In Your Home? Yes Information not available 04/06/2023 How Much Tobacco Do You Smoke? No Information not available 04/06/2023 Do You Feel Stressed (tense, Restless, Nervous, Or Anxious, Or Unable To Sleep At Night)? [id number] Information not available 04/06/2023 Do You Use Any Illicit Or Recreational Drugs? No Information not available 04/06/2023 Do You Use Sunscreen Routinely? Yes Information not available 04/06/2023 Have You Used IV Drugs? No Information not available 04/06/2023 Sex: Unknown Functional Status Question Answer Note LastModified by Organization D etails LastModified Time Are you able to walk? YESWOREST Information not available 04/06/2023 What is your exercise level? None Information not available 04/06/2023 Mental Status None recorded. Family History Relationship Description Onset Age of this Age Resolved Age Notes LastModified by Organization Details LastModified Time Mother Anxiety disorder Not available 2022 17:52:48 Mother Depressive disorder Not available 2022 17:52:49 Unspecified Relation Multiple sclerosis Not available 2022 17:52:49 Maternal Grandfather Hypertensive disorder Not available 2022 17:52:49 Father Diabetes mellitus Not available 2022 17:52:49 Medical History Condition Response Allergies (Food, seasonal, environmental ) Y Other Y Drug/Latex Allergies/Reactions N Breast Cancer N Blood Transfusion N Dermatologic Disorders N Lung Disease N Defects or Inherited Disease N Breast Problem N Gestational Diabetes N Hematologic disorders N Anesthesia Complications N History of STI N Deep Vein Thrombosis N Anxiety Disorder Y Autoimmune disease N Arthritis N Polyps N Infertility N Acid Reflux (GERD) Y History of abnormal pap N Cancer N Varicosities N Stroke N Neurologic/Epilepsy N Endometriosis N High Cholesterol N Fibromyalgia N Headaches Y Kidney Disease N Heart Problems N Thyroid Problems N Kidney or Bladder Problems N GI Problems Y Eating Disorder N Anemia N Art (IVF or FET) N Psychiatric Illness N Ovarian Cancer N Diabetes N Pulmonary (TB, Asthma) N Hepatitis/Liver Disease N Eczema N Urinary Tract Infection N Abuse/Domestic Violence N Asthma N Trauma/Violence N Depression/ depression Y Heart Disease N Pre-Eclampsia N Hypertension N Osteoporosis N Thrombophilias N Gynecological History Statement/Question Response Abnormal Pap N Flow Light Date of LMP 07/01/2024 N On BCP's at Conception? N STIs/STDs N Was last menstrual period normal N HPV Vaccine Y Duration of Flow (days) 3 Current Control Method Implant Date of control 04/27/2023 Are cycles usually normal N Date of Last Colonoscopy 09/06/2019 Sexually Active? Y Menses Monthly N Age of first menstrual cycle 12 Date of Last Pap Smear 04/20/2023 Sexual Problems? 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 Body mass index 40+ - severely obese 787170564 Z68.41 Will discuss options moving forward as this would likely assist if +PCOS. [id number] [facility] [address],[facility] [place] [address] 04/08/2023 16:52:28 04/08/2023 17:34:00 Irregular periods [id number] N92.6 [id number] Glory Gonzalez [facility] [address],[facility] [place] [address] 04/20/2023 17:23:55 04/25/2023 09:56:12 Screening procedure Z13.9 Secondary amenorrhea 156 132458 N91.1 US reviewedEM Bx recommende dEMBx performed- see procedure notes. Discussed options for management of amenorrhea .She opts for nexplanonD iscussed all control options in depth and pt is interested in Nexplanon. Discussed all risks and benefits including irregular unschedule d bleeding. Pt verbalized understand ing and would like to proceed. Will abstain until nexplanon placed.Papito l abstain until nexplanon placed.Papito l repeat US 3-6mos post-place ment to evaluate lining.Papito l place unless bx is abn. Time spent in visit is a total of 30 mins with at least 50% of visit consisting of counseling and review of plan of care. Polycystic ovary syndrome [id number] E28.2 Today we agreed to trial of metformin for PCOS. Counseled on medication R/B's, Most common side effects, & use. All questions were answered to patient satisfacti on. Will complete metformin 500mg x 4wks; if tolerating can bump up to 1000mg daily x 4wks; then, full 1500mg which would be our goal.Virtu al or in person visit med check [id number] Glory Gonzalez , [facility] [address],[facility] [place] [address] 04/27/2023 17:39:36 04/27/2023 18:20:39 Contraception care management [id number] Z30.9 Insertion of subcutaneous contraceptive 448270345 Z30.9 Patient is here currently on her menses. She was given all the r/b/a of placement of the Nexplanon device and has signed the consent. She is fully aware of all possible side effects of the device and has decided to move forward with placement. Insertion site was cleansed with betadine and 3cc lidocaine used for anesthesia . Device was placed in the left arm per usual fashion w/o complicati on and patient instructed to f/u in one month or earlier if there are any si/sx of infection or hypersensi tivity at the insertion site RTO x 3mos med check of nexplanon and metforminP ossibly update TVUS at that time to ensure lining is sufficient . [id number] Glory Gonzalez [facility] [address],[place] [address] 07/13/2023 18:49:25 07/14/2023 08:50:45 Secondary amenorrhea [id number] N91.1 Patient is here today for a medicaton check of control nexplanon. She voices goals of therapy have been met with use of this therapy. She denies neg side effects. She is eating, drinking, sleeping well; moods are stable & periods are well regulated but not monthly on this device which we discussed. Wishes to continue this method of BC. Appropriat e to continue this medication . Time spent in visit is a total of 23 mins with at least 50% of visit consisting of counseling and review of plan of care. Polycystic ovary syndrome [id number] E28.2 E88.819 Return for medication check x 3mosSchedu le for increasing dosage to 1500mg nightly was also reviewed & given.Unde rstanding verbalized .Rx sent [id number] [facility] [address],[place] [address] 10/14/2023 14:14:47 10/18/2023 15:48:01 Polycystic ovary syndrome [id number] E28.2 E88.819 Doing well on Metformin overall except for increase in diarrhea when initially raising the dosage.Thi s is leveling out but still will have this on occasion.E ating a low carb diet and trying to find ways to get in more movement during winter months. Return for medication check x 6mosContin ue 1500mg nightly and will update lab work in 6mos.Under standing verbalized .Rx sent Total time of virtual/te le-visit was approx 21 mins with >50% consisting of counseling , education of patient's plan of care. [id number] LOUIS GRIJALVA MD [facility] [address] [address] 04/27/2024 15:02:13 04/27/2024 16:13:33 Discharge from nipple 09401811 N64.52 - reports unilateral milky discharge from left nipple since age 18- normal prolactin- breast exam overall normal aside from milky nipple discharge on left breast- will order US to further evaluate Polycystic ovary syndrome [id number] E28.2 - stable- managed on metformin and Nexplanon- continue monitor for other s/s of metabolic syndrome- discussed medication options when TTC [id number] LOUIS GRIJALVA MD [facility] [address] [address] 07/31/2024 15:04:32 07/31/2024 16:10:23 Gynecologic examination 31553350 Z01.419 Well woman care- Cervical cancer screening: Pap smear obtained today, will follow up on the results with the patient as they become available- Breast cancer screening: mammogram not indicated- Colon cancer screening: does not qualify- HPV immunizati on: received- STD testing: declined- hereditary cancer screening: does not qualify for testing Health Concerns Section Related Observation LastModified by Organization Detai ls LastModified Time None Recorded Concern Status LastModified by Organization Details LastModified Time None Recorded Advance Directives Directive None Recorded Payers Encounter Date Sequence Insurance Name Policy Number Policy Angel Covered Member ID Angel Member ID Guarantor Name 04/27/2023 1 [place] [id number] Tj Ivey [id number] Emely Mondragon 07/13/2023 1 [id number] Tj Ivey [id number] Emely Mondragon 10/14/2023 1 [id number] Tj Ivey [id number] Emely Mondragon 04/27/2024 1 [id number] Tj Ivey [id number] Emely Mondragon 07/31/2024 1 [id number] Tj Ivey [id number] Emely Mondragon Notes Date Note Type Note Provider Name and Address Organization Details Recorded Time 04/27/2023 text/html Here today for nexplanon insert. [facility] [address], [place], [address], [facility] 04/27/2023 18:15:47 07/13/2023 text/html Here today for medication check of Nexplanon & metformin. [facility] [address], [place], [address], [facility] 07/13/2023 19:09:48 10/14/2023 text/html Here today for medication check of Metformin. Telemedicine Consent: Patient Verification and Telemedicine Based ConsentI am proceeding with this evalatuion at the direct request of the patient. I have verified this is the correct person; and have obtained VERBAL CONSENT from the patient/surrogate to perform this voluntary TELEMEDICINE ENCOUNTER EVALUATION. I have EXPLAINED risks (including potential loss of confidentiality), benefits, alernatives; adn the potential need for a subsequent face to face care. Patient/Surrogate understands that there is a risk of medical inaccuracies given that our recommendations will be made based on reported data. Knowing that there is a risk that this information is not reported accurately, and that the telemedicine audio, or data feed may be incomplete; the patient agrees to proceed providing recommendations only. The patient/surrogate has been notified that OTHER healthcare professionals (including students/residents/a tn technical personnel) may be involvoed in this audio evaluation. All laws concerning confidentiality and patient access to medical records and copies of medical records apply to telemedicine. I have reviewed this above verification and consent paragraph with the patient/surrogate. PATIENT LOCATION: [facility], WorkplaceThis encounter was perfromed using: Audio/visual YESAll aspects of patients medical history were reviewed and updated as documented in Joie at this time. Gl[facility] [address] [place], [address], [facility] 10/18/2023 14:17:58 04/27/2024 text/html Patient presents for med check. On metformin for PCOS and Nexplanon for control. 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 Sees GI, on colestipol with good control of GI symptoms. Doing well on Nexplanon, having regular periods on Nexplanon with rare intermenstrual spotting. Also reports long hx since 18 years old of unilateral milky discharge. No hx of breast exam or breast mass. Normal prolactin last year. LOUIS GRIJALVA MD [address], [place], [address], [facility] 04/27/2024 16:06:46 07/31/2024 text/html Presents today f or her annual well-woman exam. Denies abnormal vaginal discharge. She is sexually active and denies dyspareunia. She is using Nexplanon for contraception, and she states that she is satisfied with this method. She has not noticed any changes or masses in her breasts. LMP108/31/23. Periods are regular with Nexplanon. LOUIS GRIJALVA MD [address], [place], [address], [facility] 07/31/2024 16:03:48 OBGyn Episode No OBEpisode recorded.
--- OUTSIDE RECORDS SUMMARY | 2024-10-20 07:51 | XMS_ITS | Clinical Summary ---
Author Organization [facility] Address [address] [place] [address] Care Team Providers Care Picture Engraver Name Role Phone Khari Chance MD Primary Care Provider [phone] Source Comments [facility],non-owned Affiliates and Associated Physician Practices is amultiple site organization consisting of ambulatory clinics and hospital sitesin [place], [place], [place] and [place]. This disclosure is being madepursuant to the Care Everywhere program and may not contain all information available regarding this patient. Last updated 18.[facility] Allergies Active Allergy Reactions Criticality Noted Date [...] duct without cholecystitis or obstruction 03/08/2023 07/18/2023 Family History Medical History Relation Name Comments Diabetes; unknown type Father High Cholesterol Father Hypertension Father Cancer - Prostate Maternal Grandfather Osteoporosis Mother Cancer - Prostate Paternal Grandfather Hypertension Paternal Grandmother Relation Name Status Comments Father Maternal Grandfather Mother Paternal Grandfather Paternal Grandmother Social History Tobacco Use Types Packs/Day Years [...] Comments Blood Pressure 100/70 10/20/2023 4:18 PM [facility] Pulse 94 10/20/2023 4:18 PM [facility] Temperature 36.1 C (97 F) 10/20/2023 4:18 PM [facility] Respiratory Rate 16 10/20/2023 4:18 PM [facility] Oxygen Saturation 99% 10/20/2023 4:18 PM [facility] Inhaled Oxygen Concentration - - Weight 120.7 kg (266 lb) 10/20/2023 4:18 PM [facility] Height 162.6 cm (5' 4 ) 10/20/2023 4:18 PM [facility] Body Mass Index 45.66 10/20/2023 4:18 PM [facility] Plan of Treatment Upcoming Encounters Date Type Department Care Team (Late st Contact Info) Description 12/28/2024 1:40 PM CDT Office Visit [facility] - Dermatology [address] [place] [address], [place] [address] Gloria Singleton MD [address] [place] [address] [address] [place] [address] Health Maintenance Due Date Last Done Comments PAP SMEAR 1997 HIV SCREENING 2012 HPV VACCINE (1 - 3-dose series) 2012 HEPATITIS C SCREENING 11/23/2015 DTAP/TDAP/TD VACCINES (1 - Tdap) 2016 HEPATITIS B VACCINE (1 of 3 - 19+ 3-dose series) 2016 COVID-19 VACCINE (4 - 2023-2 5 season) 2024 12/11/2021, 12/18/2020, 2020 INFLUENZA VACCINE (#1) 2024 9, 07/19/2018 DEPRESSION SCREENING 08/29/2024 ZOSTER VACCINE (1 of 2) 11/28/2047 HIB VACCINE Aged Out No longer eligi ble based on patient's age to complete this topic MENINGOCOCCAL (Group B) VACCINE Aged Out No longer eligible b ased on patient's age to complete this topic MENINGOCOCCAL VACCINE Aged Out No rodrigo omar eligible based on patient's age to complete this topic PNEUMOCOCCAL VACCINE Aged Out No long er eligible based on patient's age to complete this topic Advance Directives * Full Code (Latest Code Status on File) Date Activated Date Inactivated Comments 03/08/2023 7:05 PM 03/11/2023 4:36 PM Care Teams Picture Engraver Relationship Specialty Start Date End Date Khari Chance MD [address] [place] [address] PCP - General Family Medicine 03/09/23
--- OUTSIDE RECORDS SUMMARY | 2024-10-20 07:51 | XMS_ITS | Clinical Summary ---
Author Organization [facility] [address] [place] [address] Care Team Providers Care Instructional Materials Director Name Role Phone Khari Chance MD Primary Care Provider [phone] Allergies Active Allergy Reactions Criticality Noted Date [...] 01/11/2024 Assessment & Plan (07/18/2024 3:28 PM [facility]): Patient continue to wear her CPAP at auto titrating range of 5-20 cm water pressure while sleeping. Her DME is [facility] home care. Assessment & Plan (01/11/2024 2:23 PM CDT): Due to continued symptoms, the patient will continue CPAP at 5-20 cm water pressure. Denied need for supplies. 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 I have recommended proceeding with a nocturnal polysomnogram with a split night protocol if necessary and no MSLT. The patient will follow up here in 3 months. Encounters Date Type Department Care Team Description 09/28/2024 9:15 AM [facility]IR OR [facility]ON ASSISTANT Office Visit [facility] Orthopedics and Sports Medicine [address] [place] [address] [address] [place] [address] Mateo Martinez MD Left knee pain, unspecified chronicity (Primary Dx); Chondromalacia, patella, left; EDS (Iveth-Danlos syndrome) 09/05/2024 Telephone [facility] Hand Surgery [address] [place] [address] [address] [place] [address] Karuna Amaro PA 09/04/2024 Orders Only [facility] [address] [place] [phone] ProviderLori MD 09/01/2024 - 09/01/2024 11:59 PM [facility] [employer] ASSISTANT Hospital Encounter [facility] [employer] [address] [place] [address] Discharge Disposition: Discharge to home or self care 08/17/2024 8:00 AM [facility] [employer] ASSISTANT Office Visit [facility] Orthopedics and Sports Medicine [address] [place] [phone] Karuna Amaro PA Left knee pain, unspecified chronicity (Primary Dx); EDS (Iveth-Danlos syndrome) 08/17/2024 7:53 AM [facility] [employer] [facility]ON ASSISTANT - 08/17/2024 11:59 PM HAIR OR BEAUTY SALON ASSISTANT Hospital Encounter [facility] [address] [place] [address] Left knee pain, unspecified chronicity Discharge Disposition: Discharge to home or self care from Last 3 Months Surgical History Surgery Date Site/Laterality Comments CHOLECYSTECTOMY 01/27/2023 - 02/25/2023 COLONOSCOPY 11/28/2023 - 12/27/2023 UPPER GASTROINTESTINAL ENDOSCOPY 11/28/2023 - 12/27/2023 Family History Medical History Relation Name Comments Diabetes Brother Hypertension Brother Diabetes Father Hypertension Father Cancer Maternal Grandfather Hypertension Mother Relation Name Status Comments Brother Alive Father Alive Maternal Grandfather Mother Alive Social History Tobacco Use Types Packs/Day Years Used Date Smoking Tobacco: Never Passive Smoke Exposure: Never Smokeless Tobacco: Never Tobacco Cessation:Counseling Given: No AUDIT-C Answer Date Recorded Q1: How often do you have a drink containing alc ohol? Never 10/12/2023 Average Number of Drinks Not on file 024 Frequency of Binge Drinking Not on file 09/29 Comments Unknown Sex and Gender Information Value Date Recorded Sex Assigned at Not on file Legal Sex Female 10:34 AM [facility] ASSISTANT Gender Identity Female 10/12/2023 1:59 PM [facility] Sexual Orientation Not on file Obstetrics History Last Filed Vital Signs Vital Sign Reading Time Taken Comments Blood Pressure 124/76 07/18/2024 3:17 PM [facility] Pulse 83 07/18/2024 3:17 PM [facility] [employer] [facility] ASSIST[facility] Temperature 37 C (98.6 F) 07/18/2024 3:17 PM [facility] [employer] ASSISTANT Respiratory Rate 18 07/18/2024 3:17 PM [facility] ASSISTANT Oxygen Saturation 99% 07/18/2024 3:17 PM [facility] [employer] ASSISTANT Inhaled Oxygen Concentration - - Weight 119.7 kg (264 lb) 09/28/2024 9:15 AM [facility] [employer] [facility] ASSISTANT Height 164.5 cm (5' 4.75 ) 09/28/2024 9:15 AM CS T Body Mass Index 44.27 09/28/2024 9:15 AM [facility] [employer] [facility] ASSISTANT Plan of Treatment Health Maintenance Due Date Last Done Comments Cervical Cancer Screening 1997 Depression Screening 1997 Hepatitis C Screening 1997 Regular Well Visit/Exam 18-64 11/28/2015 Pneumococcal vaccine <65 (1 of 2 - PCV) 2016 DTaP/Tdap/Td Vaccine (7 - Td or Tdap) 02/23/2022 02/24/2012, 12/01/2001, 05/30/1999, Additional history exists Covid-19 Vaccine (2023-2 5 season) 2024 12/11/2021, 12/18/2020, 2020 Influenza Vaccine (#1) 2024 06/23/2019, 2017 Varicella Vaccines Completed 03/27/2009, 05/26/2002 HPV Vaccines Completed 08/25/2012, 03/30, 02/24/2012 Procedures Procedure Name Priority Date/Time Associated Diagnosis Comments MRI KNEE LEFT WO CONTRAST Schedule Routine, Read Routine (OP Routine) 09/04/2024 3:11 PM [facility] [employer] [facility] ASSISTANT MSK MR OUTSIDE REFERENCE Routine 09/01/2024 12:00 AM [employer] ASSISTANT XR KNEE LEFT 3 VIEWS Schedule Routine, Read Routine (OP Routine) 08/17/2024 7:58 AM [facility] ASSISTANT Left knee pain, unspecified chronicity from Last 3 Months Results * MRI Knee Left WO Contrast (09/04/2024 3:11 PM [facility] ASSISTANT) Anatomical Region Laterality Modality Lower Extremities Left Magnetic Reson ance Historical Provider MD IMG MRI PROCEDURES Final Result * MSK MR Outside Reference (09/01/2024 12:00 AM HAIR [employer] ASSISTANT) Narrative MARITO_ALESHA_MHB_MHE - 09/28/2024 9:31 AM HAIR OR [employer]ON ASSISTANT This order has been auto-finalized and does not contain a result. us Provider Transcribed Order IMG MRI PROCEDURES Fi nal Result RAD_CLARIO_MHB_MHE * XR Knee Left 3 Views (08/17/2024 7:58 AM [facility] ASSISTANT) Anatomical Region Laterality Modality Lower Extremities, Knee Left Computed Radiography 08/18/2024 9:18 PM [facility] [employer] [facility] ASSISTANT Narrative 08/18/2024 9:19 PM [facility] [employer] [facility]ON ASSISTANT EXAM DESCRIPTION: XR KNEE LEFT 3 VIEWS [...] by Rigo Craig M.D. T: Report ID: [id number] Reading Location: [id number] Procedure Note Rigo Craig MD - 08/18/2024 [...] 9:19 PM - Electronically signed by Rigo HALL T: Report ID: [id number] Reading Location: [id number] Karuna BRANCH IMG XR PROCEDURES Final R esult from Last [address] [facility] Care Teams Instructional Materials Director Relationship Specialty Start Date End Date Khari Chance MD PCP - General Emergency Medicine 09/06/23
== END 2024-10-20 07:45 | disposition home or self-care (01) ==
PROVIDERS: PCP Emergency Medicine; Visit Provider Emergency Medicine
DX: R74.8 Abnormal levels of other serum enzymes (principal); K76.0 Fatty (change of) liver, not elsewhere classified
CPT/HCPCS: 76705

== ENCOUNTER 2025-08-18 09:53 | Emergency (ER) | payer BC, SELFPAY ==
--- NOTE | ~2025-08-18 | XR_ITS ---
Lumbar spine series Indication: Low back pain Comparison: None Technique: 3 views lumbar spine Findings: 5 nonrib-bearing lumbar-type vertebral bodies. No acute fracture. No listhesis. Vertebral bodies normal height. Disc spaces maintained. No significant degenerative changes. SI joints congruent. Sacrum intact. IMPRESSION: 1. No acute findings. Reviewed, dictated and finalized at location R. OF DIGITAL IMPRESSION: 1. No acute findings.
[2025-08-18 10:13] VITALS: BP 116/77; PULSE 99; RESP 16; TEMP 36.4; O2SAT 98
--- NOTE | 2025-08-18 10:22 | ED_ITS ---
HPI - URI/Sore Throat General Chief Complaint: Upper Respiratory Infection Stated Complaint: Strep Throat/Back Pain Time Seen by Provider: 08/18/25 10:00 Source: patient Mode of arrival: ambulatory Limitations: no limitations History of Present Illness HPI Narrative: patient is a 29-year-old female who presents with sore throat that started 4 days ago along with congestion, cough, body aches and drainage. Patient also has low back pain that started 4 days ago. Patient states she felt a pop. Now when touching back she states she has pain shooting down her left leg. Denies any loss of bowel or bladder, numbness, tingling or weakness in legs. Related Data Home Medications ?Medication ?Instructions ?Recorded ?Confirmed ?Last Taken ?Type fluoxetine 40 mg capsule 40 mg PO DAILY 11/14/2310/27 Unknown History colestipol 1 gram tablet g PO 08/18/25 Unknown Histo ry metformin 500 mg tablet,extended mg PO 08/18/25 Unkno wn History release 24 hr sumatriptan succinate 100 mg tablet mg PO 08/18/25 Un known History topiramate 50 mg tablet mg 08/18/25 Unknown History Allergies Allergy/AdvReac Type Severity Reaction Status Date / Time morphine AdvReac Intermediate Chest Pain Verified 08/18/25 09:58 ketorolac (From Toradol) AdvReac Flushing Verified 08/18/25 09:58 Review of Systems Review of Systems: All systems reviewed & are unremarkable except as noted in HPI and below Constitutional: Constitutional: Denies chills, Denies fatigue, Denies fever(s), Denies headache(s), Denies malaise and Denies weakness Eyes: Eyes: Denies blurry vision, Denies itchy eyes and Denies loss of vision ENT: Denies otalgia, Denies headache(s), Reports nasal congestion, Denies sin us pain and Reports sore throat Cardiovascular: Cardiovascular: Denies chest pain, Denies irregular heart rhythm and Denies dyspnea Respiratory: Respiratory: Reports cough and Denies dyspnea Gastrointestinal: Gastrointestinal: Denies abdominal pain, Denies diarrhea, Denies nausea and Denies vomiting Musculoskeletal: Musculoskeletal: Reports back pain, Denies myalgias and Denies arthralgias Integumentary/Breasts: Skin/Breast: Denies pruritus and Denies rash Neurologic: Denies headache(s), Denies loss of vision and Denies weakness Psychiatric: Psychiatric: Reports no additional psychiatric complaints Endocrine: Endocrine: Denies fatigue Allergic/Immunologic: Allergic/Immunologic: Denies itchy eyes PMFSH Comments At time of signature, agree with nursing past medical, surgical, social and family history. There is no relevant family history pertinent to the presenting complaint. Exam Const: General: cooperative, healthy appearing, comfortable, no acute distress and well nourished Nutritional Appearance: well nourished Orientation/consciousness: patient oriented x3 Limitations: no limitations HENMT: Head: normal to inspection, normocephalic and atraumatic Ears: hearing grossly normal bilaterally, external ears normal, TM's normal bilaterally, EAC's normal and no periauricular adenopathy Face/Nose/Sinus: Normal external nose present, Abnormal mucous membranes and turbinates present erythematous bilateral and diffuse, normal facial exam, sinuses nontender and face symmetric Face and sinus: normal facial exam, sinuses nontender and face symmetric Mouth: Yes Normal oral and palatal mucosa present, Yes lip normal, Yes tongue normal, Yes Normal salivary glands and ducts present, Yes oropharynx normal and Yes moist mucous membranes Teeth and gingiva: dentition normal Throat: posterior oropharynx normal, tonsils normal and uvula midline Eyes: General: appearance normal, both eyes and all related structures Alignment and Position: alignment normal and position normal Periorbital: periorbital findings normal Eyelids: eyelids normal Pupils: Equal, round and reactive pupils present Neck: Neck: normal visual inspection, full ROM, no lymphadenopathy and supple Chest: Chest palpation & inspection: normal inspection of the chest and normal palpation of entire chest wall Resp: Effort & Inspection: normal respiratory effort and able to speak in complete sentences Auscultation: clear to auscultation bilaterally, no crackles, no rales, no rhonchi and no wheezes Cardio: Rate: regular rate Rhythm: regular rhythm Heart sounds: S1 normal heart sound present and S2 normal heart sound present GI: Inspection: normal to inspection Back/Spine/Pelvis: Thoracic/Lumbar Spine: thoracic and lumbar spine normal to inspection, thoraco-lumbar ROM normal, No paraspinal muscle tenderness, No thoracic spinal tenderness and lumbar spinal tenderness at L1 and at L2 Skin: General skin exam: normal color and no rashes or lesions noted Neuro: General: patient oriented x3 and moves all extremities Cranial nerves: Yes Equal, round and reactive pupils present Speech: normal speech Gait exam (Neuro): Normal gait present Extrem: General: normal to inspection, full ROM and no edema Psych: Appearance: grossly normal and well kempt Mental Status: mental status grossly normal Speech and movement: Normal speech and movement present Affect: normal affect Attitude: cooperative Thought process: Normal thought process present Course Course Emergency Course: Patient is aware of diagnosis, understands and agrees to treatment plan. Anticipatory guidance given. Patient agrees to follow-up as directed and is aware of reasons to seek care at the emergency department. Portions of this record may have been created with voice recognition software Level of Care: Express Care Visit Vital Signs Vital signs: Vital Signs Temperature 36.4 C 08/18/25 10:13 Pulse Rate 99 08/18/25 10:13 Respiratory Rate 16 08/18/25 10:13 Blood Pressure 116/77 08/18/25 10:13 Pulse Oximetry 98 08/18/25 10:13 Temperature 36.4 C 08/18/25 10:13 Pulse Rate 99 08/18/25 10:13 Respiratory Rate 16 08/18/25 10:13 Blood Pressure 116/77 08/18/25 10:13 Pulse Oximetry 98 08/18/25 10:13 Oxygen Delivery Room Air 08/18/25 10:18 MDM MDM Narrative Medical decision making narrative: Rapid strep was negative. A throat culture is pending. Symptoms likely viral in etiology. no abnormality seen on lumbar x-ray. Will refer to PCP for physical therapy. Will treat with steroids and muscle relaxers Pt well hydrated appearing, in no respiratory distress, hemodynamically stable. Recommend supportive care. The patient is stable at time of discharge the clinical impression was discussed and the patient was given the opportunity to ask questions, which were addressed as completely as possible given the information available at present. Anticipatory guidance and return to care precautions were discussed and the importance of primary care follow-up was stressed and encouraged. The patient voiced understanding of the plan, indications to return, and the need for follow-up. Exam findings show no acute concerns or changes Patient is appropriate for outpatient treatment and follow-up. Differential Diagnosis Differential Diagnosis: Differential diagnosis considered: Navarro virus, strep pharyngitis, allergic rhinitis, upper respiratory tract infection, sinusitis, rhinosinusitis, nasopharyngitis. viral pharyngitis, otitis media, otitis externa, otitis effusion, foreign body, cerumen impaction, viral syndrome, and influenza. Medical Records I have reviewed the following patient records and this information was taken into consideration when formulating the assessment and plan.: previous clinic visits Lab Data [facility] Lab Attestation statement: I personally reviewed the patient's lab results. Labs: Lab Results 08/18/25 Range/Units 10:22 POC Grp A Strep Screen Negative (Negative) Imaging Data Radiologist's impression: ITS Impressions Lumbar Spine X-Ray 08/18/25 11:10 IMPRESSION: 1. No acute findings. Lumbar spine series Indication: Low back pain Comparison: None Technique: 3 views lumbar spine Findings: 5 nonrib-bearing lumbar-type vertebral bodies. No acute fracture. No listhesis. Vertebral bodies normal height. Disc spaces maintained. No significant degenerative changes. SI joints congruent. Sacrum intact. IMPRESSION: 1. No acute findings. Reviewed, dictated and finalized at location [facility]. [facility] Discharge Plan Discharge Clinical Impression: Upper respiratory infection Qualifiers: URI type: unspecified viral URI Qualified Code(s): J06.9 - Acute upper respiratory infection, unspecified Lumbar strain Qualifiers: Encounter type: initial encounter Qualified Code(s): S39.012A - Strain of muscle, fascia and tendon of lower back, initial encounter Patient Disposition: Home Condition: Stable Instructions: Upper Respiratory Infection (ED), Lower Back Exercises (ED) Additional Instructions: Your rapid strep swab was negative today at [facility]. A throat culture will be sent to the laboratory for further testing. If the test is positive, you will receive a phone call within 48 hours and an appropriate antibiotic will be initiated at that time. Your symptoms are likely due to a viral illness, which is not treated with antibiotics. Viral symptoms can be present for up to a few weeks. -For pain/fever, you may take: Tylenol 650-1000mg by mouth every 4-6 hours. Do not exceed 4000mg in 24 hours. Advil (Ibuprofen) 600 mg by mouth every 6 hours. Do not exceed 2400mg in 24 hours. 8 AM: Tylenol 11 AM: Ibuprofen 2 PM: Tylenol 5 PM: Ibuprofen 8 PM: Tylenol 11 PM: Ibuprofen 2 AM: Tylenol 5 AM: Ibuprofen -Antihistamine medication such as Benadryl/Zyrtec at night and Claritin/Minerva during the day can help improve symptoms. -Use Flonase twice a day for 5 days then daily to help reduce the inflammation and dry up your sinuses. -You can also use Sudafed behind the pharmacy counter(12 or 24 hour). Be sure to drink plenty of water with these medications at least 8 ounces with every dose and it is important to drink 8 to 10 glasses of water per day. Water is a natural decongestant -Eat and drink things that are easy to swallow, like tea or soup, or popsicles. -Oral rinses such as: Salt water gargles and/or may use topical anesthetic (eg. Chloraseptic spray) or lozenges to relieve dryness or throat pain). -Frequent hand washing or hand animal husbandry teacher is one of the best ways to prevent spread of infection. -Using a vaporizer or humidifier at night will also help thin secretions and help with coughing up phlegm. Call your Primary Care Doctor and make a follow-up appointment in 3 days. If your cough worsens, you develop a fever greater than 103, you develop shaking chills, a fast heartbeat, trouble breathing and/or feel you are are breathing much faster than usual, call your Primary Care Doctor or go to the ER. lumbar x-ray shows no abnormalities take steroids in the morning with food, take muscle relaxers every 8 hours as needed for muscle spasm. do not drive or make any important decisions while on this medication for it can make you drowsy Exercise:Combine aerobic exercise, like walking or swimming, with specific exercises to keep the muscles in your back and abdomen strong and flexible.bed rest is not recommended. Proper Lifting:Be sure to lift heavy items with your legs, not your back. Do not bend over to pick something up. Keep your back straight and bend at your knees. Weight:Maintain a healthy weight. Being overweight puts added stress on your lower back. Avoid Smoking:Both the smoke and the nicotine cause your spine to age faster than normal. Proper Posture:Good posture is important for avoiding future problems. A therapist can teach you how to safely stand, sit, and lift. Use warm moist heat or ice to help with pain. Follow up with Primary provider in 2-3 days, This may become a chronic condition and they will be the one to help manage your pain and order additional testing. Follow-up with your doctor for further care and evaluation or seek ER if you develop problems with bladder/bowel function, weakness or loss of feeling in one or both of your legs. Patient Language: Slovenian Prescriptions: New prednisone 20 mg tablet 40 mg PO DAILY 5 Days Qty: 10 0RF baclofen 10 mg tablet 10 mg PO TID 5 Days Qty: 15 0RF fluticasone propionate [Flonase Allergy Relief] 50 mcg/actuation spray,suspension 1 spray intranasal DAILY Qty: 16 0RF Rx Instructions: administer into each nostril No Action famotidine 20 mg tablet 20 mg PO BID Qty: 14 0RF fluoxetine 40 mg Capsule 40 mg PO DAILY sumatriptan succinate 100 mg tablet PO metformin 500 mg tablet extended release 24 hr PO colestipol 1 gram tablet PO topiramate 50 mg tablet Follow-up/Referrals: Khari Chance MD [Physician, Family Practice] - 3 Days Stand Alone Forms: Work/School Release IP Time of Disposition: 11:21
[2025-08-18 10:24] LABS: EDSTREPNEGPOS1 Negative (Negative)
== END 2025-08-18 11:25 | disposition home or self-care (01) ==
PROVIDERS: Emergency Provider Nurse Practitioner Family
DX: J06.9 Acute upper respiratory infection, unspecified (principal); S39.012A Strain of muscle, fascia and tendon of lower back, initial encounter; X58.XXXA Exposure to other specified factors, initial encounter; Q79.60 Ehlers-Danlos syndrome, unspecified; E28.2 Polycystic ovarian syndrome
CPT/HCPCS: 72100; 87081; 87880; 99213; G0463

== ENCOUNTER 2025-08-20 14:39 | Outpatient (CLI) | payer BC, SELFPAY ==
--- NOTE | ~2025-08-20 | XR_ITS ---
EXAMINATION: XR chest 2V 08/20/2025 14:49 INDICATION: Cough for 3 days. Shortness of breath and cough. PROCEDURE: 2 view chest COMPARISON: No prior studies for comparison. FINDINGS: The lungs are clear. The cardiomediastinal silhouette is within normal limits. There are no pleural effusions. There is no pneumothorax suspected. IMPRESSION: 1: NO ACUTE CARDIOPULMONARY DISEASE. Reviewed, dictated and finalized at location O. [facility] SALES PROFESSIONAL
== END 2025-08-20 14:40 | disposition home or self-care (01) ==
PROVIDERS: PCP Emergency Medicine; Visit Provider Emergency Medicine
DX: R05.9 Cough, unspecified (principal); R06.02 Shortness of breath
CPT/HCPCS: 71046